=== PATIENT | male | born 1975 | race Caucasian/White ===

== ENCOUNTER 2017-02-25 02:00 | Emergency (ER) | payer MEDICAID ==
[~2017-02-25] VITALS: Ht 175.3 cm; Wt 120.2 kg
[2017-02-25 02:12] VITALS: BP 170/106
[2017-02-25] MEDS ORDERED: LIDOCAINE 2%-EPI 1:100,000 30 ML VIAL TP ONE (02:30)
[2017-02-25] MEDS ORDERED: KETOROLAC TROMETHAMINE INJ 60 MG/2 ML VIAL IM ONE ×2 (02:30)
[2017-02-25] MEDS ORDERED: ONDANSETRON 4 MG TAB.RAPDIS SL ONE (02:30)
[2017-02-25] MEDS ORDERED: oxyCODONE/APAP (5/325 MG) 1 UDTAB TABLET PO ONE (02:30)
[2017-02-25] MEDS ORDERED: SODIUM BICARBONATE 5 ML VIAL TP ONE (02:30)
[2017-02-25] MEDS ORDERED: ONDANSETRON 4 MG TAB.RAPDIS ONE (02:31)
[2017-02-25] MEDS ORDERED: oxyCODONE/APAP (5/325 MG) 1 UDTAB TABLET ONE (02:31)
[2017-02-25] MEDS ORDERED: LIDOCAINE 2%-EPI 1:100,000 30 ML VIAL ONE (02:32)
== END 2017-02-25 06:08 | disposition home or self-care (01) ==
LOC: ER 02:00
DX: M25.462 Effusion, left knee (principal); M79.7 Fibromyalgia; M54.32 Sciatica, left side; G89.29 Other chronic pain; E66.9 Obesity, unspecified; F41.9 Anxiety disorder, unspecified; I10 Essential (primary) hypertension; M10.9 Gout, unspecified; Z88.0 Allergy status to penicillin
CPT/HCPCS: 36415; 82962-TC; 84155-TC; 87070-TC; 89051-TC; 89060-TC; A4606; A6402; J1885; J3490; Q0162; Z7610

== ENCOUNTER 2017-04-03 18:08 | Inpatient (IN) | payer MEDICAID ==
[~2017-04-03] VITALS: Ht 172.7 cm; Wt 109.8 kg
--- NOTE | 2017-04-03 18:08 | NUR ---
BIB POA SENT BY DR Huddleston FOR CT OF THE ABDOMEN S/P ABDOMINAL SX X 3 WEEKS. With MAHOGANY PICC intact. With abdominal dressing on SP Sx site, intact. With Sherwood cath intact. Placed to bed 7, placed on hospital gown.
[2017-04-03 19:12] LABS: BASOPHILS # (AUTO) 0.1 /CMM (0.0-0.2); BASOPHILS % (AUTO) 1.4 % (0.0-2.0); EOSINOPHILS # (AUTO) 0.3 /CMM (0.0-0.7); EOSINOPHILS % (AUTO) 3.8 % (0.0-6.0); HEMATOCRIT 25 % (39-51); HEMOGLOBIN 8.2 g/dL (13.5-17.5); LYMPHOCYTES # (AUTO) 1.5 /CMM (0.8-4.8); LYMPHOCYTES % (AUTO) 16.7 % (20.0-44.0); MEAN CORPUSCULAR HEMOGLOBIN 25 PG (26.0-33.0); MEAN CORPUSCULAR HGB CONC 33 g/dl (31.0-36.0); MEAN CORPUSCULAR VOLUME 75 fL (80-96); MONOCYTES % (AUTO) 11.2 % (2.0-12.0); NEUTROPHILS % (AUTO) 66.9 % (43.0-81.0); PLATELET COUNT (AUTO) 400 /CMM (150-450); RDW COEFFICIENT OF VARIATION 15.2 (11.5-15.0); RED BLOOD CELL COUNT(AUTO) 3.36 MIL/uL (4.5-6.0); WHITE BLOOD COUNT (AUTO) 8.9 K/uL (4.3-11.0)
[2017-04-03 19:26] LABS: INR 1.08 (0.87-1.13); PROTHROMBIN TIME 11.2 SECS (9.5-12.7)
[2017-04-03] MEDS ORDERED: HEPA10009 SQ (19:28)
[2017-04-03] MEDS ORDERED: GABA-534 PO (19:28)
[2017-04-03] MEDS ORDERED: INSU100V3 SQ (19:28)
[2017-04-03] MEDS ORDERED: MAGN400O6 PO (19:28)
[2017-04-03] MEDS ORDERED: NA P133E RC (19:28)
[2017-04-03] MEDS ORDERED: BISA10SU8 RC (19:28)
[2017-04-03] MEDS ORDERED: LORA1TAB PO (19:28)
[2017-04-03] MEDS ORDERED: BLOO-668 IN (19:28)
[2017-04-03 19:30] LABS: TROPONIN I 0.198 ng/mL (0.00-0.056)
[2017-04-03] MEDS ORDERED: PANT40TA4 PO (19:30)
[2017-04-03] MEDS ORDERED: LEVO500T15 PO (19:30)
[2017-04-03] MEDS ORDERED: HYDR-552 PO (19:30)
[2017-04-03] MEDS ORDERED: METO25TA6 PO (19:30)
[2017-04-03 19:31] LABS: CALCIUM, SERUM 8.8 mg/dL (8.5-10.1); CREATININE 2.5 mg/dL (0.6-1.3); POTASSIUM 4.6 mmol/L (3.5-5.1)
--- NOTE | 2017-04-03 19:35 | NUR ---
BIB POA SENT BY DR Huddleston FOR CT OF THE ABDOMEN S/P ABDOMINAL exploratory laparatomy with L colostomy X 3 WEEKS. Pt is a/o x4, follows commands, SR, sat well on 2L 02, v/s stable, no pain, midabdominal incision observed, dressing intact, L colostomy bag intact, f/c some urine output, able to move all extremities, family at the bedside, seen by MD, awating for surgery eval, pt just got back from CT scan, stable.
[2017-04-03 19:37] LABS: ALBUMIN 2.5 g/dL (3.4-5.0); BILIRUBIN,DIRECT 0.1 mg/dL (0.0-0.2); BILIRUBIN,TOTAL 0.3 mg/dL (0.2-1.0); TOTAL PROTEIN, SERUM 8.1 g/dL (6.4-8.2)
--- NOTE | 2017-04-03 19:40 | NUR ---
PT RETURNED FROM CT.
[2017-04-03] MEDS ORDERED: LORAZEPAM INJ 2 MG/ML VIAL IV ONE (20:00)
[2017-04-03] MEDS ORDERED: LORAZEPAM INJ 2 MG/ML VIAL ONE (20:03)
--- NOTE | 2017-04-03 20:12 | NUR ---
PT ASSIGNED TO BED 310-2
--- NOTE | 2017-04-03 20:28 | NUR ---
PT TO RADIOLOGY FOR VQ SCAN.
[2017-04-03] MEDS ORDERED: IV NS 0.9% 1,000 ML IV PRN (20:43)
[2017-04-03] MEDS ORDERED: LORAZEPAM 1 MG TABLET PO PRN (21:00)
[2017-04-03] MEDS ORDERED: DEXTROSE 50%-WATER 50 ML DISP.SYRIN IV PRN (21:00)
[2017-04-03] MEDS ORDERED: ACETAMINOPHEN 325 MG TABLET PO PRN (21:00)
[2017-04-03] MEDS ORDERED: MAG HYDROX/AL HYDROX/SIMETH 30 ML UDC PO PRN (21:00)
[2017-04-03] MEDS ORDERED: ALBUTEROL FS 2.5 MG/3 ML VIAL.NEB NEB PRN (21:00)
[2017-04-03] MEDS ORDERED: ZOLPIDEM TARTRATE 5 MG TABLET PO PRN (21:00)
[2017-04-03] MEDS ORDERED: MAGNESIUM HYDROXIDE 30 ML UDC PO PRN (21:00)
[2017-04-03] MEDS ORDERED: Z GUARD REMEDY 2 OZ OINT TP PRN (21:00)
[2017-04-03] MEDS ORDERED: HEPARIN SODIUM, PORCINE 1000 UNIT/1 ML VIAL SQ SCH (21:00)
[2017-04-03] MEDS ORDERED: BISACODYL SUPP (10 MG) 10 MG/SUPP.RECT SUPP.RECT RC PRN (21:00)
[2017-04-03] MEDS ORDERED: ONDANSETRON HCL/PF 4 MG/2 ML VIAL IVP PRN (21:00)
--- NOTE | 2017-04-03 21:29 | NUR ---
PT RETURNED FROM RADIOLOGY
[2017-04-03 21:35] VITALS: BP 147/103
--- NOTE | 2017-04-03 21:36 | NUR ---
PT TRANSFERRED TO ROOM 310, ACLS FOLLOWED, PT STABLE, NO PAIN, REPORT GIVEN TO
[2017-04-03 22:00] VITALS: BP 147/103
--- NOTE | 2017-04-03 22:00 | NUR ---
RN ADMITTING NOTES RECEIVED REPORT FROM SOCIOLOGY FACULTY MEMBER, YOSELIN. Pt ARRIVED TO FLOOR VIA GURNEY. FAMILY FRIEND AT BEDSIDE. Pt IS A/OX4, VERBAL, ABLE TO MAKE NEEDS KNOWN. NO S/S OF ACUTE DISTRESS OR SEVERE SOB NOTED. TELE Pt. COLOSTOMY BAG ON LT SIDE INTACT NO LEAKING. PENA CATHETER IN PLACE, INTACT NO LEAKING. IV ACCESS ON MAHOGANY PICC. SAFETY MEASURES IN PLACE. BED LOW, LOCKED, HOB ELEVATED, SIDE RAILS UP CALL LIGHT AND BEDSIDE TABLE WITHIN REACH. WILL CONTINUE TO MONITOR Pt THROUGHOUT THE NIGHT FOR SAFETY.
[2017-04-03] MEDS: GABAPENTIN 300 MG CAPSULE PO SCH (22:54)
[2017-04-03] MEDS: BLOOD SUGAR DIAGNOSTIC 1 EACH STRIP VI SCH (22:54)
[2017-04-03] MEDS: METOPROLOL TARTRATE 25 MG TABLET PO SCH (22:55)
[2017-04-03] MEDS: HYDROCODONE/APAP 5/325MG 1 EACH TABLET PO PRN (22:56)
[2017-04-03] MEDS ORDERED: MORPHINE SULFATE INJ 2 MG/ML DISP.SYRIN IV PRN (23:30)
[2017-04-04] VITALS: BP 135/98
[2017-04-04 04:00] VITALS: BP 136/98
[2017-04-04] MEDS ORDERED: MORPHINE SULFATE INJ 2 MG/ML DISP.SYRIN ONE (04:07)
[2017-04-04] MEDS: BLOOD SUGAR DIAGNOSTIC 1 EACH STRIP VI SCH ×4 (06:25→23:12)
--- NOTE | 2017-04-04 06:30 | NUR ---
ACCUCHECK BG 104. NO INSULIN COVERAGE NEEDED AT THIS TIME.
--- NOTE | 2017-04-04 06:50 | NUR ---
RN CLOSING NOTES: NO SIGNIFICANT CHANGES IN Pt's CONDITION. Pt STABLE AT THIS TIME. ALL NEEDS MET AND ATTENDED TO. SAFETY MEASURES IN PLACE. TELE READING SR 85. SCHEDULED FOR SX TODAY @1030AM. CONSENT SIGNED. WILL ENDORSE TO ANNA RN FOR Pt's JUAN RAMON.
[2017-04-04 06:54] VITALS: BP 135/98
[2017-04-04 07:16] LABS: BASOPHILS # (AUTO) 0.1 /CMM (0.0-0.2); EOSINOPHILS # (AUTO) 0.4 /CMM (0.0-0.7); EOSINOPHILS % (AUTO) 4.4 % (0.0-6.0); HEMATOCRIT 23 % (39-51); HEMOGLOBIN 7.8 g/dL (13.5-17.5); LYMPHOCYTES # (AUTO) 1.7 /CMM (0.8-4.8); LYMPHOCYTES % (AUTO) 20.5 % (20.0-44.0); MEAN CORPUSCULAR HEMOGLOBIN 25 PG (26.0-33.0); MEAN CORPUSCULAR HGB CONC 34 g/dl (31.0-36.0); MEAN CORPUSCULAR VOLUME 74 fL (80-96); MONOCYTES # (AUTO) 0.9 /CMM (0.1-1.30); MONOCYTES % (AUTO) 11.2 % (2.0-12.0); NEUTROPHILS # (AUTO) 5.3 /CMM (1.8-8.9); NEUTROPHILS % (AUTO) 62.9 % (43.0-81.0); PLATELET COUNT (AUTO) 337 /CMM (150-450); RDW COEFFICIENT OF VARIATION 16.2 (11.5-15.0); RED BLOOD CELL COUNT(AUTO) 3.16 MIL/uL (4.5-6.0); WHITE BLOOD COUNT (AUTO) 8.4 K/uL (4.3-11.0)
[2017-04-04] MEDS: PANTOPRAZOLE 40 MG TABLET.DR PO SCH (07:30)
[2017-04-04 07:34] LABS: CREATININE 2.2 mg/dL (0.6-1.3); MAGNESIUM 1.9 mg/dL (1.8-2.4); POTASSIUM 4.7 mmol/L (3.5-5.1)
--- NOTE | 2017-04-04 07:50 | NUR ---
RN NOTES PATIENT RECEIVED LYING DOWN ,ASLEEP, HOB ELEVATED, NO SOB OR DISTRESS NOTED. PATIENT ON O2 VIA NC AT 2 LPM AND TOLERATED WELL. ON TELE MONITOR SR 87 WITH PVC'S. PT. A/O X4, VERBALLY RESPONSIVE AND ABLE TO MAKE NEEDS KNOWN. IV INTACT AND PATENT. KEPT PATIENT CLEAN AND COMFORTABLE IN BED, CALL LIGHT WITHIN PATIENT REACH. WILL CONTINUE TO MONITOR TO ACCORDINGLY.
[2017-04-04] MEDS: METOPROLOL TARTRATE 25 MG TABLET PO SCH ×2 (09:00→20:38)
[2017-04-04] MEDS: HEPARIN SODIUM, PORCINE 5000 UNITS/1 ML VIAL SQ SCH ×2 (09:00→20:37)
[2017-04-04] MEDS: ASPIRIN 81 MG TAB.CHEW PO SCH (09:00)
[2017-04-04] MEDS ORDERED: HEPARIN SODIUM, PORCINE 1000 UNIT/1 ML VIAL SQ SCH (09:00)
[2017-04-04 09:28] LABS: IRON, SERUM 25 ug/dl (50-175); TOTAL IRON BINDING CAPACITY 256 ug/dl (250-450)
[2017-04-04 09:41] LABS: FERRITIN 305 ng/mL (8-388)
[2017-04-04] MEDS ORDERED: LIDOCAINE 0.5% HCL 50 ML VIAL ONE (10:44)
[2017-04-04] MEDS ORDERED: BUPIVACAINE MPF W/EPI 0.25% 30 ML VIAL ONE (10:44)
[2017-04-04] MEDS ORDERED: FENTANYL PF 100MCG/2ML AMPUL ONE (10:46)
[2017-04-04] MEDS ORDERED: MIDAZOLAM HCL 2 MG/2ML VIAL ONE (10:46)
--- NOTE | 2017-04-04 11:00 | NUR ---
RN NOTES PATIENT WENT TO SURGERY IN STABLE CONDITION WITH NO SOB OR DISTRESS NOTED.
[2017-04-04] MEDS ORDERED: METRONIDAZOLE 500MG/ NS 100ML 100 ML IV ONE (11:05)
--- NOTE | 2017-04-04 12:44 | NUR ---
WOUND CARE CONSULT: PT JUST BACK FROM SURGERY. PT NOT TURNED FOR FULL SKIN ASSESSMENT YET. PT NOTED TO HAVE KCI VAC TO ABDOMEN AT 125mmHg CONTINUOUS SETTING. NO DRAINAGE IN CANISTER YET. WILL SEE PRN. LINK IN AGREEMENT WITH PLAN OF CARE. Addendum: 04/04/17 at 1250 by ELAINA VELASQUEZ WNDNU WOUND VAC ORDERS AND SKIN PROTECTION RECOMMENDATIONS DISCUSSED WITH NURSING STAFF.
--- NOTE | 2017-04-04 13:25 | NUR ---
RN NOTES PATIENT CAME BACK FROM SURGERY IN STABLE CONDITION WITH NO SOB OR DISTRESS NOTED. VITALS TAKEN RIGHT AFTER SURGERY. BP 123/82 O2 SAT 95 AT 2 LPM R-20 T-97.1 P-85.
[2017-04-04] MEDS ORDERED: SOD FERRIC GLUC 125 MG in IV NS 0.9% 100 ML IV SCH (14:00)
[2017-04-04 16:00] VITALS: BP 126/79
[2017-04-04] MEDS: MORPHINE SULFATE INJ 4 MG/ML DISP.SYRIN IV PRN ×2 (16:01→20:37)
[2017-04-04] MEDS: IV NS 0.9% 1,000 ML IV PRN (18:19)
--- NOTE | 2017-04-04 18:41 | NUR ---
RN NOTES ALL NEEDS PROVIDED, ATTENDED, AND ANTICIPATED. KEPT PATIENT CLEAN AND COMFORTABLE IN BED. CALL LIGHT WITHIN PATIENT REACH, WILL CONTINUE TO MONITOR ACCORDINGLY. ENDORSED TO NEXT SHIFT RN TO CONTINUE CARE.
--- NOTE | 2017-04-04 19:56 | NUR ---
RN NOTES RECEIVED PATIENT IN BED, ALERT AND ORIENTED X4, CALM, NO SOB, NO RESPIRATORY DISTRESS, ABLE TO VERBALIZE NEEDS, TOLERATING 2LPM VIA NC, S/P ABDOMINAL SX, COMPLAINING OF 8/10 PAIN TO ABDOMEN, WOUND VAC CONNECTED TO ABDOMEN, COLOSTOMY DRAINING WELL, FORMER PARTH DRAIN SITE IS CLEAN, NO BLEEDING. PENA CATHETER DRAINING WELL, MAHOGANY PICC LINE IS PATENT AND INFUSING WELL, NEEDS ATTENDED, CALL LIGHT WITHIN REACH.
[2017-04-04 20:00] VITALS: BP 125/72
[2017-04-04] MEDS: HYDROCODONE/APAP 5/325MG 1 EACH TABLET PO PRN (23:11)
[2017-04-04] MEDS: GABAPENTIN 300 MG CAPSULE PO SCH (23:12)
[2017-04-04] MEDS: *INSULIN REGULAR(HUMULIN R)HUM 100 UNIT/ML VIAL SQ PRN (23:16)
--- NOTE | 2017-04-04 23:16 | NUR ---
RN NOTES ACCUCHECK 116 MG/DL, NO INSULIN GIVEN
[2017-04-05] VITALS (7 sets, daily range): BP systolic 122–142; BP diastolic 77–86
[2017-04-05] MEDS: IV NS 0.9% 1,000 ML IV PRN ×2 (02:54→14:03)
[2017-04-05] MEDS: MORPHINE SULFATE INJ 4 MG/ML DISP.SYRIN IV PRN ×3 (05:07→20:58)
[2017-04-05] MEDS: BLOOD SUGAR DIAGNOSTIC 1 EACH STRIP VI SCH ×4 (06:22→21:19)
--- NOTE | 2017-04-05 06:39 | NUR ---
RN NOTES PATIENT IS ASLEEP, EASILY AROUSEABLE BY VOICE AND TOUCH, NO SOB, ON 2LPM VIA NC, COMPLAINING OF ABDOMINAL PAIN, PROVIDED PAIN MORPHINE 2MG IVP AND NORCO FOR BREAKTHROUGH PAIN, MAHOGANY PICC LINE IS PATENT AND INFUSING WELL. COLOSTOMY BAG IS DRAINING OF SOFT AND SOLID STOOL, WOUND VAC ATTACHED TO ABDOMINAL WOUND IS DRAINING WITH SEROSANGUINEOUS FLUID, PENA CATHETER DRAINING WELL OF CLEAR AND YELLOW URINE. PER ODER, PENA CATHETER SHOULD BE DISCONTINUED WHEN PATIENT IS AMBULATING AND ABDOMINAL BINDER WHEN AMBULATING. REFUSED SPONGE BATH, OFFERED X3. WILL ENDORSE TO AM SHIFT FOR CONTINUITY OF CARE.
[2017-04-05 07:02] LABS: ALBUMIN 2.1 g/dL (3.4-5.0); BILIRUBIN,TOTAL 0.2 mg/dL (0.2-1.0); CALCIUM, SERUM 8.1 mg/dL (8.5-10.1); MAGNESIUM 1.6 mg/dL (1.8-2.4); PHOSPHORUS 6.2 mg/dL (2.5-4.9); POTASSIUM 4.7 mmol/L (3.5-5.1); TOTAL PROTEIN, SERUM 7.1 g/dL (6.4-8.2)
--- NOTE | 2017-04-05 07:35 | NUR ---
RN NOTES PATIENT RECEIVED LYING DOWN ,ASLEEP, HOB ELEVATED, NO SOB OR DISTRESS NOTED. PATIENT ON O2 VIA NC AT 2 LPM AND TOLERATED WELL. PT. A/O X4, VERBALLY RESPONSIVE AND ABLE TO MAKE NEEDS KNOWN. IV INTACT AND PATENT. KEPT PATIENT CLEAN AND COMFORTABLE IN BED, CALL LIGHT WITHIN PATIENT REACH. WILL CONTINUE TO MONITOR TO ACCORDINGLY.
[2017-04-05] MEDS: PANTOPRAZOLE 40 MG TABLET.DR PO SCH (08:51)
[2017-04-05] MEDS: HEPARIN SODIUM, PORCINE 5000 UNITS/1 ML VIAL SQ SCH ×2 (08:51→21:14)
[2017-04-05] MEDS: ASPIRIN 81 MG TAB.CHEW PO SCH (08:51)
[2017-04-05] MEDS: Magnesium 1GM/D5W 100ML PREMIX 100 ML IV SCH ×2 (08:51→10:06)
[2017-04-05] MEDS: METOPROLOL TARTRATE 25 MG TABLET PO SCH ×2 (08:52→21:11)
[2017-04-05] MEDS ORDERED: Magnesium 1GM/D5W 100ML PREMIX 100 ML IV SCH (10:30)
[2017-04-05] MEDS ORDERED: CIPR-262 PO (10:35)
[2017-04-05] MEDS ORDERED: METR500T PO (10:36)
[2017-04-05] MEDS: METRONIDAZOLE 500 MG TABLET PO SCH ×2 (10:57→21:10)
[2017-04-05] MEDS: CIPROFLOXACIN HCL 250 MG TABLET PO SCH ×2 (10:57→21:10)
[2017-04-05] MEDS: INSULIN REGULAR, HUMAN 100 UNIT/ML 3 ML VIAL SQ PRN (11:04)
[2017-04-05 11:45] LABS: BASOPHILS # (AUTO) 0.1 /CMM (0.0-0.2); BASOPHILS % (AUTO) 0.8 % (0.0-2.0); EOSINOPHILS # (AUTO) 0.3 /CMM (0.0-0.7); EOSINOPHILS % (AUTO) 4.5 % (0.0-6.0); HEMATOCRIT 23 % (39-51); HEMOGLOBIN 7.4 g/dL (13.5-17.5); LYMPHOCYTES # (AUTO) 1.3 /CMM (0.8-4.8); LYMPHOCYTES % (AUTO) 17.7 % (20.0-44.0); MEAN CORPUSCULAR HEMOGLOBIN 25 PG (26.0-33.0); MEAN CORPUSCULAR HGB CONC 33 g/dl (31.0-36.0); MEAN CORPUSCULAR VOLUME 75 fL (80-96); MONOCYTES # (AUTO) 0.7 /CMM (0.1-1.30); MONOCYTES % (AUTO) 9.6 % (2.0-12.0); NEUTROPHILS % (AUTO) 67.4 % (43.0-81.0); PLATELET COUNT (AUTO) 325 /CMM (150-450); RDW COEFFICIENT OF VARIATION 16.4 (11.5-15.0); RED BLOOD CELL COUNT(AUTO) 3.01 MIL/uL (4.5-6.0); WHITE BLOOD COUNT (AUTO) 7.4 K/uL (4.3-11.0)
[2017-04-05] MEDS ORDERED: SOD FERRIC GLUC 125 MG in IV NS 0.9% 100 ML IV SCH (14:00)
--- NOTE | 2017-04-05 16:15 | NUR ---
RN NOTES DR. TEMPLE TOLD ME THAT PATIENT CAN BE DISCHARGE. DR. VELEZ AND CHARGE NURSE ARE AWARE.
[2017-04-05] MEDS: BOOST PLUS FOOD-CHOCLATE 237 ML BOX PO SCH (17:02)
--- NOTE | 2017-04-05 18:40 | NUR ---
RN NOTES BLOOD TRANSFUSION ENDED WITHOUT COMPLICATIONS. VITALS STABLE AND DOCUMENTED.
--- NOTE | 2017-04-05 19:00 | NUR ---
RN MS NOTES RECEIVED PT IN BED, A/O X 4, PATIENT NOT IN ACUTE/RESPIRATORY DISTRESS, IV SITE INTACT NO S/S OF INFILTRATION. CALL LIGHT WITHIN REACH. SAFETY MEASURES IN PLACE, ON LOW BED, WILL CONTINUE TO MONITOR.
--- NOTE | 2017-04-05 19:25 | NUR ---
RN JOSE CARLOS CASSIDY [facility] CALLED AND TOLD ME THAT WOUND VAC WAS ORDER AND WAN ON THE WAY.
--- NOTE | 2017-04-05 20:40 | NUR ---
PLACED A CALL TO SPOKE TO DR. SALAZAR, SURGEON PATIENT CANNOT LEAVE THE HOSPITAL WITHOUT THE WOUND VAC PATIENT DISCHARGE HOLD FOR NOW NOTED AND CARRIED OUT ACCORDING TO THE AM NURSE PATIENT WOUND VAC IS ON THE WAY WILL FF. WITH THE CM
[2017-04-05] MEDS: GABAPENTIN 300 MG CAPSULE PO SCH (21:10)
[2017-04-05] MEDS: *INSULIN REGULAR(HUMULIN R)HUM 100 UNIT/ML VIAL SQ PRN (21:20)
[2017-04-06] MEDS: IV NS 0.9% 1,000 ML IV PRN ×2 (02:47→12:04)
[2017-04-06] MEDS: MORPHINE SULFATE INJ 4 MG/ML DISP.SYRIN IV PRN ×4 (03:36→15:20)
[2017-04-06] MEDS: METRONIDAZOLE 500 MG TABLET PO SCH ×2 (04:36→15:04)
[2017-04-06] MEDS: BLOOD SUGAR DIAGNOSTIC 1 EACH STRIP VI SCH ×2 (05:40→11:52)
[2017-04-06] MEDS: INSULIN REGULAR, HUMAN 100 UNIT/ML 3 ML VIAL SQ PRN ×2 (05:41→11:59)
--- NOTE | 2017-04-06 06:36 | NUR ---
MS RN CLOSING NOTES PATIENT COMFORTABLY ASLEEP AND EASILY AWAKEN, HEAD OF BED ELEVATED FOR BETTER LUNG EXPANSION AND GOOD CIRCULATION. ON 2LPM VIA NC 02 AT 99%, MAHOGANY, IV SITE NO S/S OF INFILTRATED PATENT AND FLUSHED, RESPIRATIONS EVEN AND UNLABORED, FREQUENT VISUAL CHECK DONE FOR SAFETY EVERY 2 HOURS. F/C CARE PROVIDED. NURSING CARE RENDERED, NEEDS ATTENDED AND ANTICIPATED, KEPT CLEAN AND DRY AND COMFORTABLE, GOOD SKIN CARE PROVIDED. OFFLOAD AT ALL TIMES. OSTOMY CARE PROVIDED. GOOD OSTOMY CARE RENDERED. SAFE HAZARD FREE ENVIRONMENT PROVIDED. CALL LIGHT WITHIN EASY TO REACH, ON LOW BED AT ALL TIMES TO ENSURE SAFETY, WILL ENDORSE TO THE NEXT SHIFT CONTINUE PLAN OF CARE
[2017-04-06 06:45] LABS: BASOPHILS # (AUTO) 0.1 /CMM (0.0-0.2); EOSINOPHILS # (AUTO) 0.4 /CMM (0.0-0.7); EOSINOPHILS % (AUTO) 5.1 % (0.0-6.0); HEMATOCRIT 25 % (39-51); HEMOGLOBIN 8.3 g/dL (13.5-17.5); LYMPHOCYTES # (AUTO) 1.3 /CMM (0.8-4.8); LYMPHOCYTES % (AUTO) 18.1 % (20.0-44.0); MEAN CORPUSCULAR HEMOGLOBIN 26 PG (26.0-33.0); MEAN CORPUSCULAR HGB CONC 33 g/dl (31.0-36.0); MEAN CORPUSCULAR VOLUME 77 fL (80-96); MONOCYTES # (AUTO) 0.6 /CMM (0.1-1.30); MONOCYTES % (AUTO) 9.3 % (2.0-12.0); NEUTROPHILS # (AUTO) 4.6 /CMM (1.8-8.9); NEUTROPHILS % (AUTO) 66.5 % (43.0-81.0); PLATELET COUNT (AUTO) 319 /CMM (150-450); RDW COEFFICIENT OF VARIATION 16.1 (11.5-15.0); RED BLOOD CELL COUNT(AUTO) 3.27 MIL/uL (4.5-6.0)
[2017-04-06 07:24] LABS: TROPONIN I 0.096 ng/mL (0.00-0.056)
[2017-04-06 07:33] LABS: ALBUMIN 2.1 g/dL (3.4-5.0); BILIRUBIN,TOTAL 0.2 mg/dL (0.2-1.0); CALCIUM, SERUM 8.4 mg/dL (8.5-10.1); CREATININE 1.8 mg/dL (0.6-1.3); MAGNESIUM 1.7 mg/dL (1.8-2.4); PHOSPHORUS 4.9 mg/dL (2.5-4.9); POTASSIUM 4.2 mmol/L (3.5-5.1)
--- NOTE | 2017-04-06 07:35 | NUR ---
RN OPENING NOTES RECEIVED PATIENT IN BED,ASLEEP, HOB ELEVATED, NO ACUTE DISTRESS, NO SOB NOTED. PATIENT ON O2 VIA NC AT 2 LPM AND TOLERATED WELL. A/O X4, VERBALLY RESPONSIVE AND ABLE TO MAKE NEEDS KNOWN. IV INTACT AND PATENT. KEPT PATIENT CLEAN AND COMFORTABLE IN BED, CALL LIGHT WITHIN PATIENT REACH. WILL CONTINUE TO MONITOR TO ACCORDINGLY.
[2017-04-06 08:00] VITALS: BP 139/87
[2017-04-06] MEDS: ASPIRIN 81 MG TAB.CHEW PO SCH (08:41)
[2017-04-06] MEDS: PANTOPRAZOLE 40 MG TABLET.DR PO SCH (08:41)
[2017-04-06] MEDS: CIPROFLOXACIN HCL 250 MG TABLET PO SCH (08:41)
[2017-04-06] MEDS: METOPROLOL TARTRATE 25 MG TABLET PO SCH (08:42)
[2017-04-06] MEDS: HEPARIN SODIUM, PORCINE 5000 UNITS/1 ML VIAL SQ SCH (08:45)
[2017-04-06] MEDS: BOOST PLUS FOOD-CHOCLATE 237 ML BOX PO SCH (08:51)
[2017-04-06] MEDS ORDERED: Magnesium 1GM/D5W 100ML PREMIX 100 ML IV SCH (11:49)
--- NOTE | 2017-04-06 15:09 | NUR ---
JONG NOTES CALLED JEFF MORIN FOR REPORT. TALKED WITH JONG GRAY, CONFIRMED THAT WOUND VAC IS THERE.
[2017-04-06 16:00] VITALS: BP 129/84
--- NOTE | 2017-04-06 17:23 | NUR ---
RN NOTES DISCHARGED PATIENT IN STABLE CONDITION ACCOMPANIED BY 2 EXPENSE ANALYST, DISCHARGE INSTRUCTIONS/EXITCARE DONE. DISCHARGE PAPERWORK GIVEN TO EXPENSE ANALYST.
== END 2017-04-06 17:00 | DRG 791 ==
LOC: ER 18:09 → TELE 20:38 → MED 04-04 14:58
PROVIDERS: ADMIT Internal Medicine; ATTEND Internal Medicine
PROC: 02HV33Z Insertion of Infusion Device into Superior Vena Cava, Percutaneous Approach (ICD-10-PCS; principal; 2017-04-03)
PROC: 0JC80ZZ Extirpation of Matter from Abdomen Subcutaneous Tissue and Fascia, Open Approach (ICD-10-PCS; 2017-04-04)
PROC: 30233N1 Transfusion of Nonautologous Red Blood Cells into Peripheral Vein, Percutaneous Approach (ICD-10-PCS; 2017-04-04)
PROC: 0JD80ZZ Extraction of Abdomen Subcutaneous Tissue and Fascia, Open Approach (ICD-10-PCS; 2017-04-04)
DX: T81.31XA Disruption of external operation (surgical) wound, not elsewhere classified, initial encounter (principal); N17.0 Acute kidney failure with tubular necrosis; J90 Pleural effusion, not elsewhere classified; E44.0 Moderate protein-calorie malnutrition; C85.90 Non-Hodgkin lymphoma, unspecified, unspecified site; Y83.9 Surgical procedure, unspecified as the cause of abnormal reaction of the patient, or of later complication, without mention of misadventure at the time of the procedure; Y92.129 Unspecified place in nursing home as the place of occurrence of the external cause; Z93.3 Colostomy status; Z68.39 Body mass index [BMI] 39.0-39.9, adult; Z83.3 Family history of diabetes mellitus; K21.9 Gastro-esophageal reflux disease without esophagitis; J98.11 Atelectasis; G89.29 Other chronic pain; G47.00 Insomnia, unspecified; E78.5 Hyperlipidemia, unspecified; E66.9 Obesity, unspecified; D50.9 Iron deficiency anemia, unspecified; Z88.0 Allergy status to penicillin; Z79.4 Long term (current) use of insulin; K57.92 Diverticulitis of intestine, part unspecified, without perforation or abscess without bleeding
CPT/HCPCS: 36415; 71010-TC; 71250-TC; 76770-TC; 78582; 80048-TC; 80053-TC; 80061-TC; 80076-TC; 82728-TC; 82962-TC; 83540-TC; 83690-TC; 83735-TC; 84100-TC; 84484-TC; 85025-TC; 85730-TC; 86850-TC; 86921-TC; 87070-TC; 87081-TC; 93307-TC; 94799-TC; A4606; A9540; A9567; C1751; J1644; J1815; J2060; J2250; J2270; J2916; J3010; J3475; J3490; J7030; J7050; P9016-BL; Z7610

== ENCOUNTER 2019-06-13 02:56 | Emergency (ER) | payer MEDICAID, OTHER ==
[~2019-06-13] VITALS: Ht 177.8 cm; Wt 117.9 kg
[~2019-06-13 02:56] MED LIST: BISA10SU12 RC; BLOO-668 IN; CIPR-262 PO; GABA-534 PO; HEPA10009 SQ; HYDR-4384 PO; INSU100V3 SQ; LEVO500T75 PO; LORA1TAB PO; MAGN400O6 PO; METO25TA6 PO; METR500T PO; NA P133E RC; PANT40TA4 PO
--- NOTE | 2019-06-13 03:10 | NUR ---
Valerio guerrero in EDM - 06/13/19 at 0310 by VIVIANAICTOR ptBIBWIFE C/O R FLANK PAIN AND PELVIC PAIN X2HR RETORT FORKER. +DIZZINESS
--- NOTE | 2019-06-13 03:10 | NUR ---
PT BIBWIFE. AAOX4. AMBULATRY. PT C/O R FLANK PAIN AND PELVIC PAIN 05/20 [place]. PT REPORTS DIZZINESS. PER PATIENT "I CAN'T CATCH MY BREATH." PT PLACED ON MONITOR AND PULSE OX. NO ACUTE DISTRESS NOTED. BREATHING EVEN AND UNLABORED. VSS. AWAITING MD FOR EVAL.
--- NOTE | 2019-06-13 03:14 | NUR ---
IV LINE ESTABLISHED, BLOOD DRAWN AND SENT TO LAB.
--- NOTE | 2019-06-13 03:30 | NUR ---
AT BEDSIDE FOR EVAL.
[2019-06-13] MEDS ORDERED: HYDROMORPHONE INJ 2 MG/ML DISP.SYRIN ONE (03:48)
[2019-06-13 03:52] LABS: BASOPHILS # (AUTO) 0.1 /CMM (0.0-0.2); BASOPHILS % (AUTO) 1.1 % (0.0-2.0); HEMATOCRIT 41 % (39-51); HEMOGLOBIN 13.4 g/dL (13.5-17.5); LYMPHOCYTES # (AUTO) 2.7 /CMM (0.8-4.8); LYMPHOCYTES % (AUTO) 24.5 % (20.0-44.0); MEAN CORPUSCULAR HGB CONC 33 g/dl (31.0-36.0); MEAN CORPUSCULAR VOLUME 80 fL (80-96); MONOCYTES # (AUTO) 0.9 /CMM (0.1-1.30); NEUTROPHILS # (AUTO) 7.1 /CMM (1.8-8.9); NEUTROPHILS % (AUTO) 63.4 % (43.0-81.0); PLATELET COUNT (AUTO) 343 /CMM (150-450); RED BLOOD CELL COUNT(AUTO) 5.09 MIL/uL (4.5-6.0); WHITE BLOOD COUNT (AUTO) 11.1 K/uL (4.3-11.0)
[2019-06-13] MEDS ORDERED: HYDROMORPHONE INJ 0.5 MG/0.5 ML SYRINGE IV ONE (04:00)
[2019-06-13] MEDS ORDERED: IV NS 0.9% 1,000 ML BAG IV ONE (04:00)
--- NOTE | 2019-06-13 04:05 | NUR ---
Patient is resting comfortably in bed. Easily aroused. VSS.
--- NOTE | 2019-06-13 04:14 | NUR ---
LACTIC 2.1
[2019-06-13 04:15] LABS: CALCIUM, SERUM 8.4 mg/dL (8.5-10.1); CARBON DIOXIDE 30 mmol/L (21-32); CHLORIDE 101 mmol/L (98-107); CREATININE 1.6 mg/dL (0.6-1.3); GLUCOSE 134 mg/dL (74-106); POTASSIUM 3.1 mmol/L (3.5-5.1); SODIUM SERUM 135 mmol/L (136-145); UREA NITROGEN, BLOOD 15 mg/dL (7-18)
[2019-06-13 04:20] LABS: ALANINE AMINOTRANSFERASE 34 U/L (12-78); ALBUMIN 3.4 g/dL (3.4-5.0); ALKALINE PHOSPHATASE 137 U/L (46-116); ASPARTATE AMINOTRANSFERASE 26 U/L (15-37); BILIRUBIN,DIRECT 0.1 mg/dL (0.0-0.2); BILIRUBIN,TOTAL 0.4 mg/dL (0.2-1.0); TOTAL PROTEIN, SERUM 7.6 g/dL (6.4-8.2)
[2019-06-13 04:29] LABS: LIPASE 121 U/L (73-393)
[2019-06-13] MEDS ORDERED: POTASSIUM CHLORIDE 20 MEQ TAB.PRT.SR PO ONE ×2 (04:30)
--- NOTE | 2019-06-13 04:32 | NUR ---
PT BROUGHT TO CT.
[2019-06-13 04:40] LABS: APPEARANCE,URINE Clear (CLEAR); BILIRUBIN,URINE Negative (NEGATIVE); BLOOD, URINE Trace-lysed Ery/uL (NEGATIVE); COLOR,URINE Yellow (YELLOW); KETONES,URINE Negative (NEGATIVE); LEUKOCYTE ESTERASE ,URINE Negative (NEGATIVE); NITRITE, URINE Negative (NEGATIVE); PH,URINE 5.5 (5.0-8.0); PROTEIN,URINE >=300 mg/dl (NEGATIVE); UGLUCOSE Negative (NEGATIVE); UROBILINOGEN,URINE 0.2 EU/dL (0.2)
--- NOTE | 2019-06-13 04:41 | NUR ---
PT BROUGHT BACK FROM CT
[2019-06-13 05:18] LABS: BACTERIA,URINE None seen /HPF (None Seen); RBC,URINE 0-2 /HPF (0-2); SQUAMOUS EPITHELIAL CELL,UR 0-2 /HPF (None Seen); WBC,URINE 0-2 /HPF (0-3)
[2019-06-13] MEDS ORDERED: KETOROLAC TROMETHAMINE 15 MG/ML VIAL ONE (06:17)
[2019-06-13] MEDS ORDERED: HYDROCODONE/APAP 5/325MG 1 EACH TABLET ONE (06:17)
[2019-06-13] MEDS ORDERED: KETOROLAC TROMETHAMINE INJ 30 MG/ML VIAL IV ONE (06:30)
[2019-06-13] MEDS ORDERED: HYDROCODONE/APAP 5/325MG 1 EACH TABLET PO ONE (06:30)
--- NOTE | 2019-06-13 06:35 | NUR ---
Patient discharged to home in stable condition. Written and verbal after care instructions given. Patient verbalizes understanding of instruction. IV removed. Catheter intact and site benign. Pressure and 4x4 applied to site. No bleeding noted. PT ambulatory with a steady gait.
[2019-06-13 06:36] VITALS: BP 148/96
== END 2019-06-13 06:37 | disposition home or self-care (01) ==
LOC: ER 02:58
DX: N20.0 Calculus of kidney (principal); E87.6 Hypokalemia; E11.22 Type 2 diabetes mellitus with diabetic chronic kidney disease; I12.9 Hypertensive chronic kidney disease with stage 1 through stage 4 chronic kidney disease, or unspecified chronic kidney disease; N18.9 Chronic kidney disease, unspecified; G89.29 Other chronic pain; F41.9 Anxiety disorder, unspecified; M10.9 Gout, unspecified; M79.7 Fibromyalgia; Z98.890 Other specified postprocedural states; Z88.0 Allergy status to penicillin; Z79.899 Other long term (current) drug therapy
CPT/HCPCS: 36415; 74176; 80048; 80076; 81001; 83605; 83690; 83735; 85025; 96374; 96375; 99284; J1170; J1885; J7030; 81000-TC

== ENCOUNTER 2020-01-20 22:19 | Inpatient (IN) | payer OTHER ==
[~2020-01-20] VITALS: Ht 177.8 cm; Wt 125.2 kg
--- NOTE | 2020-01-20 22:33 | NUR ---
[id number] FROM HOME C/O LOWER ABDOMINAL PAIN X2 DAYS -NAUSEA,-VOMITTING,-FEVER, PT TO BED 4, AWAKE, ALERT, -SOB, NAD NOTED, PENDING MD SÁNCHEZ
[2020-01-20] MEDS ORDERED: ONDANSETRON HCL/PF 4 MG/2 ML VIAL ONE (22:59)
[2020-01-20] MEDS ORDERED: MORPHINE SULFATE INJ 2 MG/ML DISP.SYRIN ONE (22:59)
[2020-01-20] MEDS ORDERED: ONDANSETRON HCL/PF 4 MG/2 ML VIAL IVP ONE (23:00)
[2020-01-20] MEDS ORDERED: MORPHINE SULFATE INJ 2 MG/ML DISP.SYRIN IV ONE (23:00)
[2020-01-20 23:12] LABS: BASOPHILS # (AUTO) 0.1 /CMM (0.0-0.2); BASOPHILS % (AUTO) 0.8 % (0.0-2.0); EOSINOPHILS % (AUTO) 4.2 % (0.0-6.0); HEMATOCRIT 39 % (39-51); HEMOGLOBIN 12.9 g/dL (13.5-17.5); LYMPHOCYTES # (AUTO) 2.1 /CMM (0.8-4.8); LYMPHOCYTES % (AUTO) 16.4 % (20.0-44.0); MEAN CORPUSCULAR HGB CONC 34 g/dl (31.0-36.0); MEAN CORPUSCULAR VOLUME 79 fL (80-96); MONOCYTES # (AUTO) 0.9 /CMM (0.1-1.30); MONOCYTES % (AUTO) 6.9 % (2.0-12.0); NEUTROPHILS % (AUTO) 71.7 % (43.0-81.0); PLATELET COUNT (AUTO) 335 /CMM (150-450); WHITE BLOOD COUNT (AUTO) 12.5 K/uL (4.3-11.0)
[2020-01-20 23:15] LABS: CARBON DIOXIDE 28 mmol/L (21-32); CHLORIDE 101 mmol/L (98-107); CREATININE 1.7 mg/dL (0.6-1.3); GLUCOSE 203 mg/dL (74-106); POTASSIUM 3.4 mmol/L (3.5-5.1); SODIUM SERUM 138 mmol/L (136-145); UREA NITROGEN, BLOOD 19 mg/dL (7-18)
[2020-01-20 23:25] LABS: ALANINE AMINOTRANSFERASE 32 U/L (12-78); ALBUMIN 3.3 g/dL (3.4-5.0); ALKALINE PHOSPHATASE 146 U/L (46-116); ASPARTATE AMINOTRANSFERASE 22 U/L (15-37); BILIRUBIN,DIRECT 0.1 mg/dL (0.0-0.2); BILIRUBIN,TOTAL 0.4 mg/dL (0.2-1.0); LIPASE 96 U/L (73-393); TOTAL PROTEIN, SERUM 7.8 g/dL (6.4-8.2)
[2020-01-20 23:35] LABS: CALCIUM, SERUM 8.9 mg/dL (8.5-10.1)
--- NOTE | 2020-01-20 23:44 | NUR ---
DR. MORIN ON THE PHONE WITH RADIOLOGIST
--- NOTE | 2020-01-21 00:17 | NUR ---
Admission sheets turned into admitting.
[2020-01-21] MEDS ORDERED: LORAZEPAM INJ 2 MG/ML VIAL ONE (00:33)
[2020-01-21] MEDS ORDERED: LORAZEPAM INJ 2 MG/ML VIAL IV ONE (01:00)
--- NOTE | 2020-01-21 01:01 | NUR ---
fax [facility] [phone]
--- NOTE | 2020-01-21 02:44 | NUR ---
Call from [facility] [employer], no beds available until change of shift.
[2020-01-21] MEDS ORDERED: DULO60CA45 PO (02:55)
[2020-01-21] MEDS ORDERED: AMIT25TA9 PO (02:55)
[2020-01-21] MEDS ORDERED: METF-440 PO (02:55)
[2020-01-21] MEDS ORDERED: ALLO100T PO (02:55)
[2020-01-21] MEDS ORDERED: TRAZ-182 PO (02:55)
[2020-01-21] MEDS ORDERED: ATOR40TA PO (02:55)
[2020-01-21] MEDS ORDERED: LOSA25TA27 PO (02:55)
[2020-01-21] MEDS ORDERED: NIFE-34 PO (02:55)
--- NOTE | 2020-01-21 03:21 | NUR ---
REPORT GIVEN TO DAREK SUNSHINE FOR JUAN RAMON PT WILL BE TRANSPORTED TO 3RD FLOOR
--- NOTE | 2020-01-21 03:56 | NUR ---
PT TRANSPORTED TO 3RD FLOOR
[2020-01-21] MEDS ORDERED: DEXTROSE 50%-WATER 50 ML DISP.SYRIN IV PRN (04:00)
--- NOTE | 2020-01-21 04:20 | NUR ---
RN NOTES RECEIVED PT. FROM ER WITH DX. OF SBO, A/OX4, NGT WAS PLACED IN ER , COLOSTOMY BAG IN PLACE, ADMISSION INSTRUCTION WAS RENDERED, MAKE PT. COMFORTABLE, CALL LIGHT WITHIN REACH, SIDERAILSUPX2, CONTINUE TO MONITOR
[2020-01-21] MEDS: HYDROMORPHONE 1 MG/1 ML DISP.SYRIN IV PRN ×4 (04:23→18:15)
[2020-01-21] MEDS: IV 1/2NS 1000 ML 1,000 ML IV SCH ×2 (04:38→14:00)
[2020-01-21 05:00] VITALS: BP 152/116
[2020-01-21] MEDS: BLOOD SUGAR DIAGNOSTIC 1 EACH STRIP IN SCH ×3 (05:53→18:22)
[2020-01-21] MEDS: hydrALAZINE HCL IV 20 MG VIAL IV PRN (06:01)
--- NOTE | 2020-01-21 06:05 | NUR ---
RN NOTES pt. blood pressure is 199/129, Hydralazine 10mg IV given as ordered, v/s stable
--- NOTE | 2020-01-21 06:15 | NUR ---
RN NOTES Spoke to Dr. Cota and got an order of NGT to low intermittent suction and Ativan 0.5mg iv PRN for anxiety, order noted and carried out
[2020-01-21] MEDS ORDERED: LORAZEPAM INJ 2 MG/ML VIAL IV PRN ×2 (06:30→15:30)
[2020-01-21 06:45] LABS: BASOPHILS # (AUTO) 0.1 /CMM (0.0-0.2); BASOPHILS % (AUTO) 0.5 % (0.0-2.0); EOSINOPHILS % (AUTO) 3.7 % (0.0-6.0); HEMATOCRIT 41 % (39-51); HEMOGLOBIN 13.9 g/dL (13.5-17.5); LYMPHOCYTES # (AUTO) 2.5 /CMM (0.8-4.8); LYMPHOCYTES % (AUTO) 19.2 % (20.0-44.0); MEAN CORPUSCULAR HGB CONC 34 g/dl (31.0-36.0); MEAN CORPUSCULAR VOLUME 78 fL (80-96); MONOCYTES # (AUTO) 0.7 /CMM (0.1-1.30); MONOCYTES % (AUTO) 5.4 % (2.0-12.0); NEUTROPHILS # (AUTO) 9.3 /CMM (1.8-8.9); NEUTROPHILS % (AUTO) 71.2 % (43.0-81.0); PLATELET COUNT (AUTO) 354 /CMM (150-450); RED BLOOD CELL COUNT(AUTO) 5.26 MIL/uL (4.5-6.0)
[2020-01-21] MEDS: INSULIN REGULAR, HUMAN 100 UNIT/ML 3 ML VIAL SQ PRN ×2 (06:58→12:26)
[2020-01-21 07:01] LABS: CALCIUM, SERUM 8.8 mg/dL (8.5-10.1); CREATININE 1.7 mg/dL (0.6-1.3); MAGNESIUM 1.8 mg/dL (1.8-2.4); POTASSIUM 3.3 mmol/L (3.5-5.1)
--- NOTE | 2020-01-21 07:08 | NUR ---
RN NOTES AWAKE, PAIN LEVEL IS 3/10, CALL LIGHT WITHIN REACH, SIDERAILSUPX2, PT. NEEDS ATTENDED
[2020-01-21 08:00] VITALS: BP 160/98
[2020-01-21] MEDS ORDERED: POTASSIUM CHLORIDE 10 MEQ/50 ML PREMIXED IVPB FOR PERIPHERAL LINE IV ONE (08:30)
[2020-01-21] MEDS: NIFEdipine XL 60 MG TAB PO SCH (08:47)
[2020-01-21] MEDS ORDERED: DIATR MEGLU/DIATRIZOATE SODIUM 120 ML BOTTLE (GASTROGRAPHIN) ONE (09:20)
[2020-01-21] MEDS: POTASSIUM CL. PREMIX PERIPHER. 50 ML IV SCH ×2 (09:30→12:47)
--- NOTE | 2020-01-21 12:40 | NUR ---
MS RN NOTES PATIENT RETURNED FROM RADIOLOGY. WILL CONTINUE TO MONITOR.
--- NOTE | 2020-01-21 12:50 | NUR ---
MS RN NOTES PATIENT REMOVED NG TUBE. REFUSES TUBE TO BE REINSERTED. MADE AWARE.
[2020-01-21 16:00] VITALS: BP 154/105
--- NOTE | 2020-01-21 17:30 | NUR ---
MS RN NOTES CALLED DR. VELEZ INFORMED THE RESULTS OF SMALL BOWL FOLLOW THROUGH, ORDERS OBTAINED TO START PATIENT ON FULL LIQUIDS DIET AND IF PATIENTS BLOOD PRESSURE IMPROVES PATIENT CAN BE DISCHARGED HOME. ORDERS NOTED AND CARRIED OUT.
--- NOTE | 2020-01-21 19:30 | NUR ---
MS RN OPENING NOTES PATIENT SLEEPING IN BED, EASY TO AWAKEN. A/OX4. ABLE TO VERBALIZE NEEDS. ON RA. NO S/S OF ACUTE RESPIRATORY DISTRESS; BREATHING IS EVEN AND UNLABORED. NO C/O PAIN AT THIS TIME. IV PRESENT ON RIGHT AC, SIZE 20, INTACT & PATENT, HEP LOCKED; PATIENT REFUSING IVF WITH NS AT THIS TIME. COLOSTOMY BAG PRESENT. SAFETY MEASURES IN PLACE AND PATIENT'S NEEDS MET. BED LOCKED, ALARM ON, SIDE RAILS X2, CALL LIGHT WITHIN REACH. WILL CONTINUE TO MONITOR.
[2020-01-21 20:00] VITALS: BP 133/96
--- NOTE | 2020-01-21 20:20 | NUR ---
MS RN NOTES PATIENT REFUSING SECOND IV BAG OF KCL 10 MEQ. MEDICATION SCANNED DURING AM SHIFT. WILL RETURN MEDICATION TO PHARMACY
--- NOTE | 2020-01-21 20:24 | NUR ---
MS RN NOTES PATIENT IN BED RESTING NO SOB OR ACUTE DISTRESS NOTED. ALL DUE MEDICATIONS ADMINISTERED. ALL NEEDS MET. NO ACUTE CHANGES NOTED. ENDORSED CARE TO PM SHIFT.
[2020-01-22] MEDS: IV 1/2NS 1000 ML 1,000 ML IV SCH
[2020-01-22 01:40] VITALS: BP 168/112
[2020-01-22] MEDS: HYDROMORPHONE 1 MG/1 ML DISP.SYRIN IV PRN ×3 (01:48→12:34)
--- NOTE | 2020-01-22 01:48 | NUR ---
MS RN NOTES PATIENT C/O OF 8/10 GENERALIZED PAIN. PER PATIENT'S REQUEST ADMINISTERED PRN DILAUDID 1MG IV PUSH. VITAL SIGNS - BP: 168/112 HR: 106
[2020-01-22 02:35] VITALS: BP 163/105
[2020-01-22] MEDS: hydrALAZINE HCL IV 20 MG VIAL IV PRN ×2 (02:43→12:28)
--- NOTE | 2020-01-22 02:43 | NUR ---
MS RN NOTES PATIENT'S BP: 163/105; ADMINISTERED PRN HYDRALAZINE 10MG IV PUSH. WILL CONTINUE TO MONITOR PATIENT'S VITALS.
[2020-01-22] MEDS: BLOOD SUGAR DIAGNOSTIC 1 EACH STRIP IN SCH ×3 (06:05→12:06)
[2020-01-22] MEDS: INSULIN REGULAR, HUMAN 100 UNIT/ML 3 ML VIAL SQ PRN ×2 (06:07→12:16)
[2020-01-22 06:32] VITALS: BP 136/115
--- NOTE | 2020-01-22 06:48 | NUR ---
MS RN CLOSING NOTES PATIENT AWAKE IN BED. A/OX4. ON 2L NC. NO S/S OF ACUTE RESPIRATORY DISTRESS; BREATHING IS EVEN AND UNLABORED. NO C/O PAIN AT THIS TIME. IV PRESENT ON RIGHT AC, SIZE 20, INTACT & PATENT, HEP LOCKED; PATIENT REFUSING IVF AT THIS TIME. COLOSTOMY BAG PRESENT. SAFETY MEASURES IN PLACE AND PATIENT'S NEEDS MET. BED LOCKED, ALARM ON, SIDE RAILS X2, CALL LIGHT WITHIN REACH. WILL ENDORSE TO DAY SHIFT NURSE PLAN OF CARE.
--- NOTE | 2020-01-22 07:30 | NUR ---
MS/RN NOTE THE PATIENT IS RECEIVED IN BED. THE PATIENT IS ALERT AND ORIENTED X4. DENIES PAIN AT THIS TIME. THE PATIENT RECEIVING OXYGEN AT 2L/MIN VIA NASAL CANNULA AND DENIES SOB. RESPIRATION REGULAR AND UNLABORED. THE PATIENT IN NO APPARENT DISTRESS. BED LOW AND LOCKED. SIDE RAILS UP X3. CALL LIGHT WITHIN REACH. WILL CONTINUE TO MONITOR.
[2020-01-22 08:00] VITALS: BP 145/95
[2020-01-22] MEDS: NIFEdipine XL 60 MG TAB PO SCH (08:34)
[2020-01-22 08:53] LABS: BASOPHILS # (AUTO) 0.1 /CMM (0.0-0.2); BASOPHILS % (AUTO) 0.5 % (0.0-2.0); EOSINOPHILS % (AUTO) 2.2 % (0.0-6.0); HEMATOCRIT 41 % (39-51); HEMOGLOBIN 13.8 g/dL (13.5-17.5); LYMPHOCYTES # (AUTO) 1.7 /CMM (0.8-4.8); LYMPHOCYTES % (AUTO) 15.3 % (20.0-44.0); MEAN CORPUSCULAR HGB CONC 33 g/dl (31.0-36.0); MEAN CORPUSCULAR VOLUME 78 fL (80-96); MONOCYTES # (AUTO) 0.7 /CMM (0.1-1.30); MONOCYTES % (AUTO) 6.6 % (2.0-12.0); NEUTROPHILS # (AUTO) 8.2 /CMM (1.8-8.9); NEUTROPHILS % (AUTO) 75.4 % (43.0-81.0); PLATELET COUNT (AUTO) 348 /CMM (150-450)
[2020-01-22] MEDS ORDERED: ALLOPURINOL 100 MG TABLET PO SCH (09:00)
[2020-01-22] MEDS ORDERED: LOSARTAN POTASSIUM 25 MG TABLET PO SCH (09:00)
[2020-01-22] MEDS ORDERED: METFORMIN 500 MG TABLET PO SCH (09:00)
[2020-01-22] MEDS ORDERED: DULOXETINE HCL 30 MG CAPSULE.DR PO SCH (09:00)
--- NOTE | 2020-01-22 09:00 | NUR ---
MS/RN NOTE PATIENT`S OXYGEN SATURATION IN ROOM AIR IS AT 96%. THE PATIENT IS TAKEN OFF FROM OXYGEN. PATIENT DENIES SOB. RESPIRATION REGULAR AND UNLABORED.
[2020-01-22 09:49] LABS: CALCIUM, SERUM 8.9 mg/dL (8.5-10.1); CREATININE 1.3 mg/dL (0.6-1.3); MAGNESIUM 1.9 mg/dL (1.8-2.4); POTASSIUM 3.1 mmol/L (3.5-5.1)
--- NOTE | 2020-01-22 10:00 | NUR ---
MS/RN NOTE THE PATIENT TOLERATES FULL LIQUID DIET WELL. DR VELEZ IS MADE AWARE.
[2020-01-22 12:28] VITALS: BP 160/115
--- NOTE | 2020-01-22 12:28 | NUR ---
MS/RN PATIENT BLOOD PRESSURE IS 160/115 AND PULSE IS 110. ADMINISTERED PRN APRESOLINE PER ORDER. WILL CONTINUE TO MONITOR.
[2020-01-22] MEDS ORDERED: POTASSIUM CHLORIDE 20 MEQ TAB.PRT.SR PO ONE (12:30)
--- NOTE | 2020-01-22 13:20 | NUR ---
MS/RN NOTE PATIENT BLOOD PRESSURE IS RECHECKED AND NOTED TO BE 145/105 AND PULSE 97. THE PATIENT IN STABLE CONDITION. IN NO APPARENT DISTRESS.
--- NOTE | 2020-01-22 13:25 | NUR ---
MS/RN NOTE THE PATIENT IS ALERT AND ORIENTED X4. DENIES SOB. IN ROOM AIR AND SATURATION IS AT 96%. DENIES SOB. RESPIRATION REGULAR AND UNLABORED. THE PATIENT DENIES PAIN AT THIS TIME. PATIENT IS PROVIDED WITH DISCHARGE INSTRUCTIONS/EDUCATION AND THE PATIENT VERBALIZED UNDERSTANDING. DISCHARGE SKIN ASSESSMENT PICTURE TAKEN, HOWEVER, THE PATIENT REFUSED COLOSTOMY BAG TO BE EMPTIED PRIOR TAKING THE PICTURES. THE PATIENT PICKED UP BY FRIEND IN A PRIVATE CAR. LEFT THE UNIT IN STABLE CONDITION.
[2020-01-22] MEDS ORDERED: ATORVASTATIN 40 MG TABLET PO SCH (22:00)
== END 2020-01-22 13:35 | disposition home or self-care (01) | DRG 247 ==
LOC: ER 22:23 → MED 01-21 03:12
PROVIDERS: ADMIT Internal Medicine; ATTEND Internal Medicine
DX: K56.600 Partial intestinal obstruction, unspecified as to cause (principal); N17.9 Acute kidney failure, unspecified; E11.22 Type 2 diabetes mellitus with diabetic chronic kidney disease; N18.3 Chronic kidney disease, stage 3 (moderate); I12.9 Hypertensive chronic kidney disease with stage 1 through stage 4 chronic kidney disease, or unspecified chronic kidney disease; F41.9 Anxiety disorder, unspecified; E66.9 Obesity, unspecified; E78.5 Hyperlipidemia, unspecified; E87.6 Hypokalemia; G89.29 Other chronic pain; Z79.4 Long term (current) use of insulin; Z93.3 Colostomy status; Z68.39 Body mass index [BMI] 39.0-39.9, adult; Z79.84 Long term (current) use of oral hypoglycemic drugs; Z98.890 Other specified postprocedural states; M10.9 Gout, unspecified; Z90.49 Acquired absence of other specified parts of digestive tract
CPT/HCPCS: 36415; 71045-TC; 74250-TC; 80048-TC; 80076-TC; 82962-TC; 83690-TC; 83735-TC; 84484-TC; 85025-TC; 85730-TC; 87081-TC; G0378; J0360; J1170; J1815; J2060; J2270; J2405; J3480; J3490; Q9963

== ENCOUNTER 2021-12-22 22:47 | Emergency (ER) | payer OTHER ==
[~2021-12-22] VITALS: Ht 177.8 cm; Wt 117.9 kg
[~2021-12-22 22:47] MED LIST changes: +ALLO100T PO; +AMIT25TA9 PO; +ATOR40TA PO; -BISA10SU12 RC; -BLOO-668 IN; -CIPR-262 PO; +DULO60CA45 PO; -GABA-534 PO; -HEPA10009 SQ; -INSU100V3 SQ; -LEVO500T75 PO; +LOSA25TA27 PO; -MAGN400O6 PO; +METF-440 PO; -METO25TA6 PO; -METR500T PO; -NA P133E RC; +NIFE-34 PO; -PANT40TA4 PO; +TRAZ-182 PO
--- NOTE | 2021-12-22 23:06 | NUR ---
TO ER BED 11. BIBS C/O CHEST PAIN X 2 DAYS. NOT CONSTANT, "FEELS LIKE STABBING". DID NOT TAKE ANYTHING FOR THE PAIN. DENIES ANY PAIN AT THIS TIME. CONNECTED TO MONITOR. NOT IN RESPIRATORY DISTRESS. AWAITING MD SÁNCHEZ
[2021-12-22] MEDS ORDERED: NITROGLYCERIN PACKET 1 GM PACKET ONE (23:22)
[2021-12-22] MEDS ORDERED: ASPIRIN 81 MG TAB.CHEW ONE (23:23)
[2021-12-22] MEDS ORDERED: NITROGLYCERIN PACKET 1 GM PACKET TD ONE (23:30)
[2021-12-22] MEDS ORDERED: ASPIRIN 81 MG TAB.CHEW PO ONE (23:30)
--- NOTE | 2021-12-22 23:31 | NUR ---
LAB AT BEDSIDE
[2021-12-22 23:38] LABS: BASOPHILS # (AUTO) 0.1 K/uL (0.0-0.2); BASOPHILS % (AUTO) 0.9 % (0.0-2.0); EOSINOPHILS % (AUTO) 2.8 % (0.0-6.0); HEMATOCRIT 34 % (39-51); HEMOGLOBIN 11.3 g/dL (13.5-17.5); LYMPHOCYTES % (AUTO) 18.6 % (20.0-44.0); MEAN CORPUSCULAR HGB CONC 33 g/dl (31.0-36.0); MEAN CORPUSCULAR VOLUME 78 fL (80-96); MONOCYTES # (AUTO) 0.6 K/uL (0.1-1.30); MONOCYTES % (AUTO) 5.9 % (2.0-12.0); NEUTROPHILS # (AUTO) 7.7 K/uL (1.8-8.9); NEUTROPHILS % (AUTO) 71.8 % (43.0-81.0); PLATELET COUNT (AUTO) 313 K/uL (150-450); RED BLOOD CELL COUNT(AUTO) 4.31 MIL/uL (4.5-6.0); WHITE BLOOD COUNT (AUTO) 10.7 K/uL (4.3-11.0)
[2021-12-22 23:47] LABS: CALCIUM, SERUM 8.4 mg/dL (8.5-10.1); CARBON DIOXIDE 30 mmol/L (21-32); CHLORIDE 102 mmol/L (98-107); GLUCOSE 228 mg/dL (74-106); POTASSIUM 3.6 mmol/L (3.5-5.1); SODIUM SERUM 140 mmol/L (136-145); UREA NITROGEN, BLOOD 12 mg/dL (7-18)
[2021-12-22 23:59] LABS: ALANINE AMINOTRANSFERASE 26 U/L (12-78); ALBUMIN 2.8 g/dL (3.4-5.0); ALKALINE PHOSPHATASE 125 U/L (46-116); ASPARTATE AMINOTRANSFERASE 16 U/L (15-37); BILIRUBIN,TOTAL 0.4 mg/dL (0.2-1.0); TOTAL PROTEIN, SERUM 6.7 g/dL (6.4-8.2)
[2021-12-23 00:10] LABS: BILIRUBIN,DIRECT 0.1 mg/dL (0.0-0.2)
[2021-12-23] MEDS ORDERED: HYDROCODONE/APAP 10/325MG TABLET ONE (02:27)
[2021-12-23] MEDS ORDERED: ONDANSETRON 4 MG TAB.RAPDIS SL ONE (02:30)
[2021-12-23] MEDS ORDERED: HYDROCODONE/APAP 10/325MG TABLET PO ONE (02:30)
[2021-12-23] MEDS ORDERED: HYDR-4209 PO ×2 (02:34→20:29)
--- NOTE | 2021-12-23 02:46 | NUR ---
Patient discharged to home in stable condition. Written and verbal after care instructions given. Patient verbalizes understanding of instruction. IV line removed.
[2021-12-23 03:07] VITALS: BP 169/87
== END 2021-12-23 02:50 | disposition home or self-care (01) ==
LOC: ER 22:50
DX: R07.89 Other chest pain (principal); G89.4 Chronic pain syndrome; M79.7 Fibromyalgia; M10.9 Gout, unspecified; Z93.3 Colostomy status; Z88.0 Allergy status to penicillin
CPT/HCPCS: 36415; 71045-TC; 80048-TC; 80076-TC; 83880; 84484-TC; 85025-TC

== ENCOUNTER 2021-12-23 18:47 | Emergency (ER) | payer OTHER ==
[~2021-12-23] VITALS: Ht 177.8 cm; Wt 122.5 kg
[~2021-12-23 18:47] MED LIST changes: +HYDR-4209 PO
--- NOTE | 2021-12-23 19:31 | NUR ---
REPORT RECEIVED FROM JOSE SUNSHINE FOR JUAN RAMON
--- NOTE | 2021-12-23 19:57 | NUR ---
PT VERBALIZED HAVING NON RADIATING CHEST PAIN THAT "COMES AND GOES". 03/20 ON P/S. MD NOTIFIED, AWAITING MD ORDERS
[2021-12-23] MEDS ORDERED: HYDROCODONE/APAP 5/325MG TABLET ONE (20:24)
[2021-12-23] MEDS ORDERED: HYDR-4209 PO (20:29)
[2021-12-23] MEDS ORDERED: HYDROCODONE/APAP 5/325MG TABLET PO ONE (20:30)
--- NOTE | 2021-12-23 20:50 | NUR ---
Patient discharged to home in stable condition. Written and verbal after care instructions given. Patient verbalizes understanding of instruction.
[2021-12-23 20:51] VITALS: BP 145/98
== END 2021-12-23 20:51 | disposition home or self-care (01) ==
LOC: ER 18:51
DX: R07.89 Other chest pain (principal); E11.22 Type 2 diabetes mellitus with diabetic chronic kidney disease; I12.9 Hypertensive chronic kidney disease with stage 1 through stage 4 chronic kidney disease, or unspecified chronic kidney disease; N18.9 Chronic kidney disease, unspecified; M79.7 Fibromyalgia; Z87.19 Personal history of other diseases of the digestive system; Z93.3 Colostomy status; Z88.0 Allergy status to penicillin; Z91.013 Allergy to seafood; Z79.899 Other long term (current) drug therapy

== ENCOUNTER 2024-04-07 01:04 | Inpatient (IN) | payer OTHER ==
[~2024-04-07] VITALS: Ht 177.8 cm; Wt 109.3 kg
[~2024-04-07 01:04] MED LIST changes: +ACET325T53 PO; +ONDA4TAB5 PO
[2024-04-07] MEDS: ONDANSETRON HCL/PF 4 MG/2 ML VIAL IVP ONE (01:30)
[2024-04-07] MEDS: IV NS 0.9% 1,000 ML BAG IV ONE (01:30)
--- NOTE | 2024-04-07 01:35 | NUR ---
URINE COLLECTED, SENT TO LAB.
[2024-04-07] MEDS ORDERED: PANTOPRAZOLE 40 MG VIAL ONE (01:37)
[2024-04-07] MEDS ORDERED: ONDANSETRON HCL/PF 4 MG/2 ML VIAL ONE (01:37)
[2024-04-07] MEDS ORDERED: MORPHINE SULFATE INJ 4 MG/ML DISP.SYRIN ONE (01:38)
[2024-04-07 01:55] LABS: BASOPHILS # (AUTO) 0.1 K/uL (0.0-0.2); BASOPHILS % (AUTO) 0.9 % (0.0-2.0); EOSINOPHILS # (AUTO) 0.5 K/uL (0.0-0.7); EOSINOPHILS % (AUTO) 3.7 % (0.0-6.0); HEMATOCRIT 39 % (39-51); HEMOGLOBIN 12.9 g/dL (13.5-17.5); LYMPHOCYTES # (AUTO) 1.6 K/uL (0.8-4.8); LYMPHOCYTES % (AUTO) 12.8 % (20.0-44.0); MEAN CORPUSCULAR HEMOGLOBIN 26 PG (26.0-33.0); MEAN CORPUSCULAR HGB CONC 33 g/dl (31.0-36.0); MEAN CORPUSCULAR VOLUME 77 fL (80-96); MONOCYTES # (AUTO) 0.7 K/uL (0.1-1.30); MONOCYTES % (AUTO) 5.5 % (2.0-12.0); NEUTROPHILS # (AUTO) 9.4 K/uL (1.8-8.9); NEUTROPHILS % (AUTO) 77.1 % (43.0-81.0); PLATELET COUNT (AUTO) 329 K/uL (150-450); RED BLOOD CELL COUNT(AUTO) 5.02 MIL/uL (4.5-6.0); RED CELL DISTRIBUTION WIDTH 15.6 % (11.5-15.0); WHITE BLOOD COUNT (AUTO) 12.2 K/uL (4.3-11.0)
--- NOTE | 2024-04-07 01:57 | NUR ---
PT BROUGHT TO CT, MEDS GIVEN, AWAITING FURTHER ORDERS
[2024-04-07] MEDS: MORPHINE SULFATE INJ 2 MG/ML DISP.SYRIN IV ONE (02:00)
[2024-04-07] MEDS: PANTOPRAZOLE 40 MG VIAL IV ONE (02:00)
[2024-04-07 02:03] LABS: CALCIUM, SERUM 9.6 mg/dL (8.5-10.1); CREATININE 2.4 mg/dL (0.6-1.3)
[2024-04-07 02:07] LABS: INR 1.03 (0.91-1.10); PARTIAL THROMBOPLASTIN TIME 27.7 SEC (24.3-34.3); PROTHROMBIN TIME 10.9 SECS (9.2-11.1)
[2024-04-07 02:09] LABS: ALBUMIN 3.4 g/dL (3.4-5.0); BILIRUBIN,DIRECT 0.1 mg/dL (0.0-0.2); BILIRUBIN,TOTAL 0.4 mg/dL (0.2-1.0); TOTAL PROTEIN, SERUM 7.4 g/dL (6.4-8.2)
[2024-04-07 02:27] LABS: APPEARANCE,URINE CLEAR (CLEAR); BILIRUBIN,URINE NEGATIVE (NEGATIVE); BLOOD, URINE 2+ Ery/uL (NEGATIVE); COLOR,URINE YELLOW (YELLOW); KETONES,URINE NEGATIVE (NEGATIVE); LEUKOCYTE ESTERASE ,URINE NEGATIVE (NEGATIVE); NITRITE, URINE NEGATIVE (NEGATIVE); PH,URINE 6.5 (5.0-8.0); PROTEIN,URINE 3+ mg/dl (NEGATIVE); UGLUCOSE NEGATIVE (NEGATIVE); UROBILINOGEN,URINE 0.2 EU/dL (0.2)
[2024-04-07 02:29] LABS: ADD URINE CULTURE NO; BACTERIA,URINE Few /HPF (None Seen); SQUAMOUS EPITHELIAL CELL,UR Moderate /HPF (None Seen); URINE AMORPHOUS URATE Few /HPF (None Seen)
[2024-04-07] MEDS ORDERED: METRONIDAZOLE 500MG/ NS 100ML 100 ML IV ONE (04:27)
[2024-04-07] MEDS: METRONIDAZOLE 500MG/ NS 100ML 500 MG in PREMIX 1 EA IV SCH ×2 (04:44→13:49)
[2024-04-07] MEDS ORDERED: LEVOFLOXACIN 500 MG /D5W 100ML 100 ML IV ONE (04:45)
[2024-04-07] MEDS: LEVOFLOXACIN 500 MG /D5W 100ML 500 MG/100 ML PIGGYBACK IV ONE (04:49)
[2024-04-07] MEDS ORDERED: ONDANSETRON HCL/PF 4 MG/2 ML VIAL IVP PRN (05:00)
[2024-04-07] MEDS ORDERED: INSULIN REGULAR, HUMAN 100 UNIT/ML 3 ML VIAL SQ PRN (05:00)
[2024-04-07] MEDS ORDERED: DEXTROSE 50%-WATER 50 ML DISP.SYRIN IV PRN ×2 (05:00→12:00)
--- NOTE | 2024-04-07 05:28 | NUR ---
REPORT GIVEN TO DERICK SUNSHINE FOR JUAN RAMON
--- NOTE | 2024-04-07 05:45 | NUR ---
SHEARING MACHINE TENDER NOTES, RECEIVED REPORT FROM JUAN FOR ER. PT TRANSFERRED TO [facility] FROM ER VIA [facility]. PLACED IN ROOM 112 BED 2. PT AWAKE. A/O X 4 AND VERBALLY RESPONSIVE. ON ROOM AIR AND PT TOLERATED WELL. IV ACCESS ON RAA#2OG INTACT AND PATENT. NO S/S OF INFILTRATIONS. NO C/O PAIN OR DISCOMFORT AT THIS MOMENT. NO ACUTE DISTRESS. FRIEND AT BEDSIDE. BODY ASSESSMENT DONE. NOTED SKIN SCRATCHES ON RT HAND DUE TO CAT'S BITE, REDNESS ON RT ABDOMINAL FOLD, NOTED LT ABDOMEN WITH COLOSTOMY. SCANT AMOUNT OF BLEEDING NOTED FROM COLOSTOMY SITE. NO OTHER OPEN SKIN OR SKIN DISCOLORATION NOTED. ABLE TO USE URINAL. ALL SAFETY MEASURES IN PLACE. BED IN LOWEST POSITION AND LOCKED. SIDE RAILS UP X3, PLACE CALL LIGHT WITH IN REACH, WILL ENDORSE TO MORNING SHIFT NURSE.
[2024-04-07 06:09] VITALS: BP 143/91; TEMP 98.4; O2SAT 93
--- NOTE | 2024-04-07 07:00 | NUR ---
HOISTING ENGINEER OPENING NOTE PATIENT RECEIVED IN BED AWAKE AND VERBALLY RESPONSIVE PATIENT A/O X4 PATIENT IN ROOM AIR STABLE OF NOW, RESPIRATION IS EVEN AND UNLABORED NO SIGNS OF RESPIRATORY DISTRESS AT THIS TIME.PATIENT CURRENTLY HAS LAC 20G NO SIGNS OF INFILTRATION SITE IS INTACT. PATIENT STATES NO PAIN AT THIS TIME OR DISCOMFORT. SAFETY MEASURES MAINTAINED. BED IN LOWEST/LOCKED POSITION, WHEELS LOCKED, CALL LIGHT/BEDSIDE TABLE W/I REACH.WILL CONTINUE TO MONITOR.
[2024-04-07 08:00] VITALS: BP 115/76; TEMP 98.6; O2SAT 93
--- NOTE | 2024-04-07 08:02 | NUR ---
WOUND CARE CONSULT: PT SEEN FOR SLIGHT BLEEDING IN OSTOMY BAG, PRESENT ON ADMISSION. DEFER TO PMD. WILL SEE PRN.
[2024-04-07] MEDS: BLOOD SUGAR DIAGNOSTIC 1 EACH STRIP IN SCH ×2 (08:04→12:45)
[2024-04-07] MEDS: DULOXETINE HCL 30 MG CAPSULE.DR PO SCH (08:23)
[2024-04-07] MEDS: ALLOPURINOL 100 MG TABLET PO SCH (08:23)
[2024-04-07] MEDS: LOSARTAN POTASSIUM 25 MG TABLET PO SCH (08:26)
[2024-04-07] MEDS: NIFEDIPINE XL 60 MG TAB.ER.24 PO SCH (08:27)
[2024-04-07] MEDS: PANTOPRAZOLE 40 MG VIAL IV SCH (08:47)
[2024-04-07] MEDS ORDERED: LEVOFLOXACIN 500 MG /D5W 100ML 500 MG in PREMIX 1 EA IV ONE (09:00)
[2024-04-07] MEDS ORDERED: PANTOPRAZOLE 40 MG VIAL IV SCH (09:00)
[2024-04-07] MEDS: ACETAMINOPHEN 325 MG TABLET PO PRN (09:45)
--- NOTE | 2024-04-07 09:50 | NUR ---
HOUSEMAN NOTE PATIENT WAS GIVEN PRN MEDICATION TYLENOL 650MG TAB FOR PAIN, PATIENT INFORMED NURSE OF SLIGHT PAIN IN ABDOMEN, REQUESTED PAIN MEDICATION. PATIENT TOLERATED WELL NO COMPLAINTS, WILL CONTINUE TO MONITOR.
--- NOTE | 2024-04-07 10:10 | NUR ---
REPLENISHMENT ANALYST NOTE PATIENT INFORMED NURSE CURRENT MEDICATION LIST IS NOT THE SAME HIS DAILY MEDICATION REGIMEN AT HOME. PATIENT STATED HE TAKES MORE MEDICATION THEN WHAT IS CURRENTLY BEING DISPENSED , CALLED PHARMACY INFORMED PHARMACIST IF THERE IS CURRENTLY MORE MEDS FOR PATIENT , PHARMACIST STATED MEDICATION IS STILL BEING RECONCILED FOR PATIENT. PATIENT WAS INFORMED.
[2024-04-07] MEDS ORDERED: INSU100V27 SQ (11:43)
[2024-04-07] MEDS ORDERED: HYDR12.55 PO (11:43)
[2024-04-07] MEDS ORDERED: VALS320T16 PO (11:43)
[2024-04-07] MEDS ORDERED: METH-649 PO (11:43)
[2024-04-07] MEDS ORDERED: CLOP75TA15 PO (11:43)
[2024-04-07] MEDS ORDERED: CARV12.52 PO (11:43)
[2024-04-07] MEDS ORDERED: OMEP40CA21 PO (11:43)
[2024-04-07] MEDS ORDERED: LEVO100T9 PO (11:43)
[2024-04-07] MEDS ORDERED: EZET10TA16 PO (11:43)
[2024-04-07] MEDS ORDERED: FERR325T6 PO (11:43)
[2024-04-07] MEDS ORDERED: NIFE90TA61 PO (11:43)
[2024-04-07] MEDS ORDERED: INSU100I26 SQ (11:43)
[2024-04-07] MEDS ORDERED: ASPI-1420 PO (11:43)
[2024-04-07] MEDS ORDERED: PANT40TA2 PO (15:01)
[2024-04-07] MEDS ORDERED: TRAM50TA2 PO (15:01)
[2024-04-07 16:00] VITALS: BP 139/86; TEMP 97.9; O2SAT 97
[2024-04-07] MEDS: AMITRIPTYLINE HCL 25 MG TABLET PO SCH (18:26)
[2024-04-07] MEDS: TRAZODONE 50 MG TABLET PO SCH (18:26)
--- NOTE | 2024-04-07 19:00 | NUR ---
BOILER REPAIR SUPERVISOR NOTE PATIENT INFORMED NURSE HAD PAIN, INFORMED PATIENT THEY CURRENTLY HAVE MORPHINE ON MED LIST PATIENT STATED WANTED TRAMADOL PROVIDER NOTIFIED PHARMACY WAS CALLED TO AUTHORIZE MEDICATION. PER PHARMACY TO D/C MORPHINE IN ORDER TO DISPENSE TRAMADOL. PATIENT AGREED TO TAKE MORPHINE , MED[facility]. MEDICATION WAS UNABLE TO BE DISPENSED DUE TO CODE BLUE BEING CALLED FOR ANOTHER PATIENT. MEDICATION WAS PUT BACK TO [facility]. NIGHT NURSE AND CHARGE NURSE WAS NOTIFIED. PATIENT NOTIFIED AND UNDERSTOOD.
--- NOTE | 2024-04-07 19:59 | NUR ---
VEHICLE BODY BUILDER CLOSSING NOTE PATIENT WAS SEEN BY HAND I TUBE BENDER FOR SLIGHT BLEEDING IN OSTOMY BAG,PATIENT CURRENTLY IN ROOM AIR RESPIRATION IS EVEN AND UNLABORED NO DISTRESS NOTED. PATIENT CURRENT HAS LAC #20G WITH NO SIGNS OF INFILATION. PATIENT WAS GIVEN ALL MEDICATION ORDERED AND TOLORATED WELL. PATEINT CURRENTLY HAS NO COMPLAINTS OF PAIN OR DISCOMFORT AT THIS TIME.SAFETY MEASURES IN PLACE, BED IS LOCKED, WITH CALL LIGHT AND BEDSIDE TABLE WITHIN EASY REACH
[2024-04-07 20:00] VITALS: BP 158/99; TEMP 97.7; O2SAT 94
--- NOTE | 2024-04-07 20:00 | NUR ---
MS RN OPENING NOTES RECEIVED PATIENT FOR CONTINUITY OF CARE ON BED AWAKE IN SEMI-FOWLERS POSITION WITH HIS CG LISETH BESIDE HIM, A/O X4 ABLE TO VERBALIZED NEEDS. ON ROOM AIR, TOLERATING WELL BREATHES EVENLY AND UNLABORED. NO SOB/ NOR S/SX OF ACUTE DISTRESS AT THIS TIME. IV ACCESS ON LAC #20G-SL, INTACT AND PATENT. COMPLAINTS OF PAIN OVER HIS HEAD, ABDOMEN AND BOTH LUMBAR AREA, THEY (HIS CAREGIVER LISETH AND PATIENT) SAID THEY'VE BEEN COMPLAINING THE PAIN SINCE 2 HOURS AGO AND KEPT ON WAITING. THUS, GIVE THE PAIN MEDS ORDERED AND WILL ASSESS AFTERWARDS. MAINTAIN ALL SAFETY MEASURES IN PLACE; BED IN LOWEST AND LOCKED POSITION, SIDE RAILS UPX2, CALL LIGHT AND BEDSIDE TABLE W/I REACH.PLAN OF CARE ONGOING.
[2024-04-07] MEDS: MORPHINE SULFATE INJ 2 MG/ML DISP.SYRIN IV PRN (20:13)
[2024-04-07] MEDS: INSULIN REGULAR, HUMAN 100 UNIT/ML 3 ML VIAL SQ PRN (22:06)
[2024-04-08] VITALS: BP 158/99; TEMP 97.7; O2SAT 94
[2024-04-08 04:00] VITALS: BP 160/102; TEMP 98.1; O2SAT 95
[2024-04-08] MEDS ORDERED: LEVOFLOXACIN 500 MG /D5W 100ML 500 MG in PREMIX 1 EA IV SCH (05:00)
[2024-04-08] MEDS: LEVOFLOXACIN 250 MG /D5W 50 ML 250 MG in PREMIX 1 EA IV SCH (05:02)
--- NOTE | 2024-04-08 06:25 | NUR ---
MS RN CLOSING NOTES; 112-2 LEFT PATIENT RESTING COMFORTABLY ON BED AWAKE IN SEMI-FOWLERS POSITION, A/O X4 ABLE TO MAKE NEEDS KNOWN. STABLE THROUGHOUT SHIFT ON ROOM AIR, TOLERATING WELL @ 95% SPO2, BREATHES EVENLY AND UNLABORED. NO SOB/ NOR S/SX OF ACUTE DISTRESS AT THIS TIME. IV ACCESS ON LAC #20G-SL, INTACT AND PATENT. NO COMPLAINTS OF PAIN/ DISCOMFORT AT THE MOMENT.ALL NURSING CARE AND NEEDS ANTICIPATED AND MET, ALL DUE MEDS GIVEN ORDERED. KEPT PATIENT CLEAN, WARM AND COMFORTABLE. MAINTAIN ALL SAFETY MEASURES IN PLACE; BED IN LOWEST AND LOCKED POSITION, SIDE RAILS UPX2, CALL LIGHT AND BEDSIDE TABLE WITHIN EASY REACH.PLAN OF CARE ONGOING, ENDORSE TO AM SHIFT NURSE FOR JUAN RAMON.
[2024-04-08 07:09] LABS: BASOPHILS % (AUTO) 0.5 % (0.0-2.0); EOSINOPHILS # (AUTO) 0.5 K/uL (0.0-0.7); EOSINOPHILS % (AUTO) 4.5 % (0.0-6.0); HEMATOCRIT 37 % (39-51); HEMOGLOBIN 12.4 g/dL (13.5-17.5); LYMPHOCYTES # (AUTO) 1.5 K/uL (0.8-4.8); LYMPHOCYTES % (AUTO) 15.3 % (20.0-44.0); MEAN CORPUSCULAR HEMOGLOBIN 26 PG (26.0-33.0); MEAN CORPUSCULAR HGB CONC 33 g/dl (31.0-36.0); MEAN CORPUSCULAR VOLUME 77 fL (80-96); MONOCYTES # (AUTO) 0.6 K/uL (0.1-1.30); MONOCYTES % (AUTO) 6.3 % (2.0-12.0); NEUTROPHILS # (AUTO) 7.4 K/uL (1.8-8.9); NEUTROPHILS % (AUTO) 73.4 % (43.0-81.0); PLATELET COUNT (AUTO) 306 K/uL (150-450); RED BLOOD CELL COUNT(AUTO) 4.82 MIL/uL (4.5-6.0); RED CELL DISTRIBUTION WIDTH 15.4 % (11.5-15.0); WHITE BLOOD COUNT (AUTO) 10.1 K/uL (4.3-11.0)
--- NOTE | 2024-04-08 07:30 | NUR ---
RN OPENING NOTE Received pt in bed sleeping. Pt continues on room air and tolerating well. No respiratory distress noted. No SOB. IV access to LAC #20G. SL. Pt noted with colostomy bag. Safety measures in place. Bed in low and locked position. Call light in reach. Plan of care ongoing.
[2024-04-08 07:39] LABS: BILIRUBIN,TOTAL 0.5 mg/dL (0.2-1.0); CALCIUM, SERUM 8.4 mg/dL (8.5-10.1); CREATININE 2.1 mg/dL (0.6-1.3); MAGNESIUM 1.8 mg/dL (1.8-2.4); PHOSPHORUS 3.9 mg/dL (2.5-4.9); POTASSIUM 3.5 mmol/L (3.5-5.1); TOTAL PROTEIN, SERUM 6.5 g/dL (6.4-8.2)
[2024-04-08 08:00] VITALS: BP 175/107; TEMP 98.2; O2SAT 95
[2024-04-08] MEDS ORDERED: METHOCARBAMOL (750MG) 750 MG TABLET PO PRN (11:00)
[2024-04-08] MEDS ORDERED: PANTOPRAZOLE 40 MG TABLET.DR PO SCH (11:00)
[2024-04-08] MEDS: ASPIRIN EC 81 MG TABLET.DR PO SCH (11:56)
[2024-04-08] MEDS: CARVEDILOL 12.5 MG TABLET PO SCH (12:01)
[2024-04-08] MEDS: HYDROCHLOROTHIAZIDE 25 MG TABLET PO SCH (12:10)
[2024-04-08] MEDS: CLOPIDOGREL BISULFATE 75 MG TABLET PO SCH (12:10)
[2024-04-08] MEDS: EZETIMIBE 10 MG TABLET PO SCH (12:10)
[2024-04-08] MEDS: LEVOTHYROXINE SODIUM 100 MCG TABLET PO SCH (12:12)
[2024-04-08 16:00] VITALS: BP 155/100; TEMP 97.7; O2SAT 95
[2024-04-08] MEDS: TRAMADOL HCL 50 MG TABLET PO PRN (17:13)
[2024-04-08] MEDS: LORAZEPAM 1 MG TABLET PO PRN (18:58)
--- NOTE | 2024-04-08 19:10 | NUR ---
RN CLOSING NOTE Pt in bed, A/O x4 and able to make needs known. Pt continues on room air and tolerating well. No respiratory distress noted. No SOB. IV access to LAC #20G. SL. Colostomy bag intact. Caregiver at bedside. Safety measures in place. Bed in low and locked position. Call light in reach. Plan of care ongoing.
--- NOTE | 2024-04-08 19:15 | NUR ---
RN OPENING NOTES RECEIVED PATIENT IN BED AWAKE, CAREGIVER AT BEDSIDE. A&O X 4. ON ROOM AIR, TOLERATING WELL. NO S/SX OF SOB AND DISTRESS NOTED AT THIS TIME. RESPIRATION EVEN AND UNLABORED. WITH IV ACCESS ON LEFT AC G#20, PATENT AND INTACT, SL. PATIENT HAS COLOSTOMY BAG, DRESSING C/D/I. FALL AND SAFETY MEASURES ARE IN PLACE: CALL LIGHT AND TABLE WITHIN EASY REACH, SIDE RAILS UP X 2, BED LOCKED IN LOWEST POSITION, HOB ELEVATED, BED ALARM ON. PLAN OF CARE ONGOING.
[2024-04-08] MEDS: ATORVASTATIN 40 MG TABLET PO SCH (21:16)
[2024-04-09] VITALS: BP 155/100; TEMP 98.4; O2SAT 95
[2024-04-09 06:42] LABS: BASOPHILS # (AUTO) 0.1 K/uL (0.0-0.2); BASOPHILS % (AUTO) 0.7 % (0.0-2.0); EOSINOPHILS # (AUTO) 0.5 K/uL (0.0-0.7); EOSINOPHILS % (AUTO) 4.7 % (0.0-6.0); HEMATOCRIT 39 % (39-51); HEMOGLOBIN 13.1 g/dL (13.5-17.5); LYMPHOCYTES # (AUTO) 1.4 K/uL (0.8-4.8); LYMPHOCYTES % (AUTO) 13.4 % (20.0-44.0); MEAN CORPUSCULAR HEMOGLOBIN 26 PG (26.0-33.0); MEAN CORPUSCULAR HGB CONC 34 g/dl (31.0-36.0); MEAN CORPUSCULAR VOLUME 77 fL (80-96); MONOCYTES # (AUTO) 0.6 K/uL (0.1-1.30); NEUTROPHILS % (AUTO) 75.2 % (43.0-81.0); PLATELET COUNT (AUTO) 323 K/uL (150-450); RED BLOOD CELL COUNT(AUTO) 5.06 MIL/uL (4.5-6.0); RED CELL DISTRIBUTION WIDTH 15.5 % (11.5-15.0); WHITE BLOOD COUNT (AUTO) 10.6 K/uL (4.3-11.0)
[2024-04-09 07:07] LABS: PTH, INTACT 76 pg/mL (15-65)
--- NOTE | 2024-04-09 07:23 | NUR ---
RN CLOSING NOTES PATIENT IN BED ASLEEP. A&O X 4. ON ROOM AIR, TOLERATING WELL. NO S/SX OF SOB AND DISTRESS NOTED AT THIS TIME. RESPIRATION EVEN AND UNLABORED. WITH IV ACCESS ON LEFT AC G#20, PATENT AND INTACT, SL. PATIENT HAS COLOSTOMY BAG, DRESSING C/D/I. COMPLAINT OF PAIN, PRN PAIN MED GIVEN ORDERED. FALL AND SAFETY MEASURES ARE IN PLACE: CALL LIGHT AND TABLE WITHIN EASY REACH, SIDE RAILS UP X 2, BED LOCKED IN LOWEST POSITION, HOB ELEVATED, BED ALARM ON. ENDORSED TO DAY SHIFT NURSE FOR JUAN RAMON
[2024-04-09 07:39] LABS: CALCIUM, SERUM 8.6 mg/dL (8.5-10.1); CREATININE 2.3 mg/dL (0.6-1.3); POTASSIUM 3.6 mmol/L (3.5-5.1)
[2024-04-09 08:00] VITALS: BP 162/100; TEMP 98.3; O2SAT 95
[2024-04-09] MEDS ORDERED: NIFEdipine XL (30MG) 30 MG TAB PO SCH (09:00)
[2024-04-09] MEDS: NIFEdipine XL (30MG) 30 MG TAB PO SCH (09:33)
[2024-04-09] MEDS: FERROUS SULFATE (325 MG) 325 MG/TAB TABLET PO SCH (09:34)
[2024-04-09] MEDS: LOSARTAN POTASSIUM 50 MG TABLET PO SCH (09:34)
[2024-04-09 09:35] VITALS: BP 162/100
[2024-04-09] MEDS: PANTOPRAZOLE 40 MG TABLET.DR PO SCH (09:39)
[2024-04-09 10:13] LABS: *SPE A/G RATIO 0.8 (0.7-1.7); *SPE ALBUMIN 2.7 g/dL (2.9-4.4); *SPE ALPHA-1-GLOBULIN 0.3 g/dL (0.0-0.4); *SPE ALPHA-2-GLOBULIN 0.9 g/dL (0.4-1.0); *SPE BETA GLOBULIN 1.1 g/dL (0.7-1.3); *SPE GLOBULIN, TOTAL 3.2 g/dL (2.2-3.9); *SPE M-SPIKE Not Observed g/dL (Not Observed); *SPE PROTEIN TOTAL 5.9 g/dL (6.0-8.5)
[2024-04-09] MEDS ORDERED: ALLO100T25 PO (10:35)
[2024-04-09] MEDS ORDERED: CIPR-262 PO (10:35)
[2024-04-09] MEDS ORDERED: METR500T PO (10:35)
[2024-04-09] MEDS ORDERED: AMIT25TA9 PO (10:35)
--- NOTE | 2024-04-09 11:39 | NUR ---
POURER METAL NOTE Pt discharged home in stable condition. DC instructions given and explained to pt; verbalized understanding. All paperwork signed and completed. All belongings sent with pt. IV access to LAC removed with no complications noted. Pt left unit in stable condition via wheelchair to private automobile accompanied by caregiver.
[2024-04-09] MEDS ORDERED: METRONIDAZOLE 500 MG TABLET PO SCH (13:00)
== END 2024-04-09 12:16 | disposition home or self-care (01) | DRG 248 ==
LOC: ER 01:06 → MEDSG1 05:17
PROVIDERS: ADMIT Internal Medicine; ATTEND Internal Medicine
DX: A04.9 Bacterial intestinal infection, unspecified (principal); N17.0 Acute kidney failure with tubular necrosis; E11.22 Type 2 diabetes mellitus with diabetic chronic kidney disease; I69.354 Hemiplegia and hemiparesis following cerebral infarction affecting left non-dominant side; D63.8 Anemia in other chronic diseases classified elsewhere; N30.91 Cystitis, unspecified with hematuria; I12.9 Hypertensive chronic kidney disease with stage 1 through stage 4 chronic kidney disease, or unspecified chronic kidney disease; M79.7 Fibromyalgia; M10.9 Gout, unspecified; N18.4 Chronic kidney disease, stage 4 (severe); E66.9 Obesity, unspecified; E78.5 Hyperlipidemia, unspecified; F32.A Depression, unspecified; F41.9 Anxiety disorder, unspecified; Z79.84 Long term (current) use of oral hypoglycemic drugs; Z88.0 Allergy status to penicillin; Z93.3 Colostomy status; M89.8X9 Other specified disorders of bone, unspecified site; Z79.4 Long term (current) use of insulin; B96.89 Other specified bacterial agents as the cause of diseases classified elsewhere; Z68.34 Body mass index [BMI] 34.0-34.9, adult
CPT/HCPCS: 36415; 76770-TC; 80048-TC; 80053-TC; 80076-TC; 81001; 82550-TC; 82962-TC; 83690-TC; 83735-TC; 83970; 84100-TC; 84155; 84165; 85025-TC; 85730-TC; A4216; A4223; G0378; J1815; J1956; J2270; J2405; J2470; J7030; J7040

== ENCOUNTER 2024-09-15 05:17 | Emergency (ER) | payer OTHER ==
[~2024-09-15] VITALS: Ht 177.8 cm; Wt 70.8 kg
[~2024-09-15 05:17] MED LIST changes: -ACET325T53 PO; -ALLO100T PO; +ALLO100T25 PO; +ASPI-1420 PO; +CARV12.52 PO; +CIPR-262 PO; +CLOP75TA15 PO; -DULO60CA45 PO; +EZET10TA16 PO; +FERR325T6 PO; -HYDR-4209 PO; -HYDR-4384 PO; +HYDR12.55 PO; +INSU100I26 SQ; +INSU100V27 SQ; +LEVO100T9 PO; -LORA1TAB PO; -LOSA25TA27 PO; -METF-440 PO; +METH-649 PO; +METR500T PO; -NIFE-34 PO; +NIFE90TA61 PO; -ONDA4TAB5 PO; +PANT40TA2 PO; +TRAM50TA2 PO; +VALS320T16 PO
[2024-09-15] MEDS ORDERED: LIDOCAINE 1%-EPI 1:100,000 20 ML VIAL ONE (06:40)
[2024-09-15] MEDS ORDERED: ACETAMINOPHEN ES 500 MG TABLET ONE (06:40)
[2024-09-15] MEDS ORDERED: TDAP [DIPH/PERTUSSIS/TET] 0.5 ML VIAL IM ONE (06:42)
[2024-09-15] MEDS: LIDOCAINE 1%-EPI 1:100,000 20 ML VIAL TP ONE (06:45)
[2024-09-15] MEDS: ACETAMINOPHEN 325 MG TABLET PO ONE (06:45)
[2024-09-15 06:52] LABS: BASOPHILS # (AUTO) 0.1 K/uL (0.0-0.2); BASOPHILS % (AUTO) 0.8 % (0.0-2.0); EOSINOPHILS # (AUTO) 0.5 K/uL (0.0-0.7); EOSINOPHILS % (AUTO) 3.8 % (0.0-6.0); HEMATOCRIT 40 % (39-51); HEMOGLOBIN 13.4 g/dL (13.5-17.5); LYMPHOCYTES # (AUTO) 1.5 K/uL (0.8-4.8); LYMPHOCYTES % (AUTO) 12.5 % (20.0-44.0); MEAN CORPUSCULAR HEMOGLOBIN 26 PG (26.0-33.0); MEAN CORPUSCULAR HGB CONC 34 g/dl (31.0-36.0); MEAN CORPUSCULAR VOLUME 77 fL (80-96); MONOCYTES # (AUTO) 0.9 K/uL (0.1-1.30); MONOCYTES % (AUTO) 7.4 % (2.0-12.0); NEUTROPHILS # (AUTO) 9.1 K/uL (1.8-8.9); NEUTROPHILS % (AUTO) 75.5 % (43.0-81.0); PLATELET COUNT (AUTO) 316 K/uL (150-450); RED BLOOD CELL COUNT(AUTO) 5.13 MIL/uL (4.5-6.0); RED CELL DISTRIBUTION WIDTH 15.3 % (11.5-15.0)
[2024-09-15] MEDS: TDAP [DIPH/PERTUSSIS/TET] 0.5 ML VIAL IM ONE (06:54)
[2024-09-15 07:08] LABS: ALANINE AMINOTRANSFERASE 19 U/L (12-78); ALBUMIN 3.1 g/dL (3.4-5.0); ALKALINE PHOSPHATASE 139 U/L (46-116); ASPARTATE AMINOTRANSFERASE 14 U/L (15-37); BILIRUBIN,DIRECT 0.1 mg/dL (0.0-0.2); BILIRUBIN,TOTAL 0.3 mg/dL (0.2-1.0); CARBON DIOXIDE 27 mmol/L (21-32); CHLORIDE 104 mmol/L (98-107); CREATININE 2.7 mg/dL (0.6-1.3); GLUCOSE 169 mg/dL (74-106); POTASSIUM 3.2 mmol/L (3.5-5.1); SODIUM SERUM 140 mmol/L (136-145); UREA NITROGEN, BLOOD 37 mg/dL (7-18)
[2024-09-15] MEDS: CLINDAMYCIN 600 MG in IV D5W 100 ML IV ONE (09:00)
[2024-09-15] MEDS ORDERED: CLIN300C12 PO (10:09)
[2024-09-15] MEDS: CLINDAMYCIN 600 MG in IV NS 0.9% 46 ML IV ONE (10:19)
[2024-09-15 11:24] VITALS: BP 119/80; TEMP 98.5; O2SAT 99
== END 2024-09-15 11:25 | disposition home or self-care (01) ==
LOC: ER 05:18
DX: S92.422A Displaced fracture of distal phalanx of left great toe, initial encounter for closed fracture (principal); S91.112A Laceration without foreign body of left great toe without damage to nail, initial encounter; E11.22 Type 2 diabetes mellitus with diabetic chronic kidney disease; E78.5 Hyperlipidemia, unspecified; I12.9 Hypertensive chronic kidney disease with stage 1 through stage 4 chronic kidney disease, or unspecified chronic kidney disease; I69.354 Hemiplegia and hemiparesis following cerebral infarction affecting left non-dominant side; M10.9 Gout, unspecified; M79.7 Fibromyalgia; N18.9 Chronic kidney disease, unspecified; Z79.02 Long term (current) use of antithrombotics/antiplatelets; Z79.82 Long term (current) use of aspirin; Z79.890 Hormone replacement therapy; Z79.899 Other long term (current) drug therapy; Z88.0 Allergy status to penicillin; X58.XXXA Exposure to other specified factors, initial encounter; Y93.01 Activity, walking, marching and hiking; Y92.89 Other specified places as the place of occurrence of the external cause; Y99.8 Other external cause status
CPT/HCPCS: 12001; 36415; 70450; 71045; 72170; 73630; 80048; 80076; 84484; 85025; 90471; 90715; 93005; 96365; 99285; J3490; J7060